=== PATIENT | female | born 1955 | race Caucasian/White ===

== ENCOUNTER 2016-12-21 20:38 | Inpatient (IN) | payer OTHER ==
[~2016-12-21] VITALS: Ht 165.1 cm; Wt 35.1 kg
--- NOTE | ~2016-12-21 | PROC NOTE ---
[place], [place] PROCEDURE NOTE NAME: FRANCO PETTIT UNIT #: [id number] ROOM: 420 DOCTOR: HARSHA HAINES MD,DAREK BIRTHDATE: [birth year] DOS: 12/25/2016 PREOPERATIVE DIAGNOSES: Persistent chest pain, cough and wheezing with abnormal CT scan of the chest. POSTOPERATIVE DIAGNOSES: Tracheobronchitis, patient was noted with, rule out pneumonia. There were no endobronchial obstructive lesions. PROCEDURE DESCRIPTION: Informed consent obtained for the patient. She was brought to the OR and placed in supine position. Conscious sedation administered by the Anesthesia Department. After achieving appropriate sedation, airway introduced into the mouth. Bronchoscope advanced into the airway into laryngeal area. Epiglottis and vocal cords were seen. Bronchoscope advanced to the vocal cord and tracheal lumen. The tracheal lumen was identified. All the secretions suctioned out for this patient with help of normal saline wash tracheal lumen. Pati for this patient was noted. It was sharp. Right upper, right middle, right lower lobe bronchi were noted with copious amount of mucopurulent material removed from the end with help of normal saline wash. No endobronchial obstructive lesions noted. left upper lobectomy the patient. The bronchus washing for the patient was collected from the left lower lobe as well, which was also noted moderate in amount. All secretions suctioned out with the help of normal saline wash, sent for culture. Procedure was tolerated by the patient without any complications. Postoperative findings will be discussed with the patient once the patient recovered the effects of acute sedation. DAREK MCLEOD MD CM:PROCNOTE:PROCEDURE NOTE [id number] DAREK HAINES MD
--- NOTE | ~2016-12-21 | PR ---
[place], [place] PROGRESS NOTE NAME: FRANCO PETTIT UNIT #: [id number] ROOM: 420 DOCTOR: HARSHA HAINES MD,DAREK BIRTHDATE: [birth year] DOS: 12/25/2016 PULMONARY PROGRESS NOTE SUBJECTIVE: She has been noted the same as yesterday with symptoms of nonproductive cough, wheezing and chest tightness. Shortness of breath occurs only with exertion, not present at rest at this time. Denies symptoms of chest pain. The cough remains nonproductive. OBJECTIVE: VITAL SIGNS: Normal temperature, respiratory rate 18, heart rate 97, blood pressure 122/68. Pulse oxygen saturation recorded on 2 liters nasal cannula was 99% saturation. HEENT: Examination shows no acute change. NECK: Supple. CARDIOVASCULAR: S1, S2 audible. LUNGS: Noted without any crackles. Diffuse expiratory wheezing remains the same. ABDOMEN: Soft, nontender. IMPRESSION: The patient with ongoing severe acute exacerbation of chronic obstructive pulmonary disease, acute tracheobronchitis, persistent symptoms of coughing, wheezing, no further changes noted in the last 3 days with current maximal medical therapy. PLAN OF TREATMENT: The patient was suggestive of fiberoptic bronchoscopy that will help to improve the secretion clearance from the endobronchial tree. Mucus plugs will be removed. In the meantime, continue other previous treatment therapy, plan of management. Usual care. The patient was agreeable for bronchoscopy done in the morning, n.p.o. past midnight status has been ordered. DAREK MCLEOD MD CM:PNTRANS [id number] DAREK HAINES MD 12/25/16 1207 interface
--- NOTE | ~2016-12-21 | CON ---
[place], [place] REPORT OF CONSULTATION NAME: FRANCO PETTIT UNIT #: [id number] ROOM: 407 DOCTOR: DAREK DUARTE MD BIRTHDATE: [birth year] DOS: 12/22/2016 PULMONARY CONSULTATION EVALUATION AND MANAGEMENT CONSULTATION REQUESTED BY: Hospitalist services. REASON FOR CONSULTATION: For the assessment of the acute exacerbation of chronic obstructive pulmonary disease. HISTORY OF PRESENT ILLNESS: A 61-year-old female presented to the Emergency Room and hospitalized on 12/21/2016. She has been noted with increased shortness of breath, which has been present for the last 10 days. She has been admitted in [facility] and discharged over a week ago. The patient stated that since she has been discharged, she was still feeling sick and not doing very well. Shortness of breath has been noted progressive worsening. It was also associated with significant severe increased wheezing as well as coughing with some sputum expectoration. The patient denies any symptoms of chest pain. Denies symptoms of rather hemoptysis. She has been treated with current steroids, bronchodilators medical management and described only minimal improvement in the symptom. REVIEW OF SYSTEMS: CONSTITUTIONAL: She has been noted significant fatigue and tiredness and symptoms of fever or chills. EYES: Denies any burning, redness, or tenderness. EARS, NOSE, THROAT: Denies sore throat, hoarseness, otalgia, postnasal drainage. CARDIOVASCULAR: Denies anginal pain, edema or pain of the lower extremities. GASTROINTESTINAL: Denies dysphagia, nausea, vomiting, diarrhea, abdominal pain, hematemesis, melena, hematochezia. MUSCULOSKELETAL: Denies acute joint pain, redness, or tenderness. The patient has been noted pain was described in the left side of the chest for this patient without radiation on scale of 1-10, 7 or 8. SKIN: Denies any lesions or rashes. CENTRAL NERVOUS SYSTEM: Denies dizziness, headache, diplopia or syncopal episodes. Remaining systems were reviewed with the patient, they were noted all negative. PAST MEDICAL HISTORY: 1. The patient was noted with hospitalization and discharged to [facility] on 12/14/2016. 2. History of severe centrilobular emphysema. 3. History of MRSA pneumonia in the past. 4. History of nonsmall cell lung cancer, left upper lobectomy of the patient. 5. Nicotine dependence. 6. Chronic protein-calorie malnutrition. 7. Chronic nicotine dependence. PAST SURGICAL HISTORY: 1. Left upper lobectomy in 2010, nonsmall cell lung cancer. [place], [place] REPORT OF CONSULTATION NAME: FRANCO PETTIT UNIT #: [id number] ROOM: 407 DOCTOR: HARSHA HAINES MD,DAREK BIRTHDATE: [birth year] 2. Past therapeutic bronchoscopies. 3. Biopsy of the left breast, which were described to be benign. SOCIAL HISTORY: The patient is and lives at home. She has been noted smoking since teenager, 3 packs of cigarettes per day. She stated that she has been currently smoking only few cigarettes a day. Denies history of alcohol use or illicit drug use. She worked for a couple of years in the [employer]. FAMILY HISTORY: The patient's father at 74 years of unknown medical illnesses. Mother at age of 1515 years old with acute myocardial infarction complications. DRUG ALLERGIES: Noted as allergy to the MERCURY and IODINE. MEDICATIONS: Current administered medications noted use of the nicotine replacement patches, IV Solu-Medrol, Lovenox for DVT prophylaxis, Dulera, DuoNeb q.6 hours, Levaquin, temazepam, and other p.r.n. medications as well given. PHYSICAL EXAMINATION: GENERAL: A 61-year-old white female who has been noted without any acute distress at this time. Height of 5 feet 5 inches, weight of 77 pounds, BMI 12.8. VITAL SIGNS: Normal temperature, respiratory rate 16-20, heart rate of 88-95. The blood pressure 122/60-110/58. Pulse oxygen saturation of the patient on 2 L nasal cannula was recorded as 99% saturation. HEENT: Examination shows head was atraumatic. Eyes nonicterus. NECK: Supple. CARDIOVASCULAR: S1, S2 audible. LUNGS: Noted. Severe decreased breath sounds were noted in the lungs bilaterally. The abdomen was noted. ABDOMEN: Soft, flat, nontender. EXTREMITIES: The patient was noted without any edema, clubbing or cyanosis. MUSCULOSKELETAL: For the patient was noted without any acute deformities, chronic loss of muscle mass of the patient, which has been known for several years. SKIN: Showed no lesions or rashes. CENTRAL NERVOUS SYSTEM: Cranial nerves 2 through 12 intact. No focal deficit. LABORATORY DATA: CBC on 12/21/2016 on admission, WBC count 13.3. Remaining CBC was normal. PT/PTT was noted as normal. CMP of the patient of 12/21/2016, BUN 25, creatinine 0.53, sodium 147, CO2 of 34. Chest x-ray of the patient that was done 1 view on 12/21/2016 noted severe COPD changes, hyperinflation, emphysema without any acute visible infiltration of nodules. Arterial blood gas pH 7.40, pCO2 of 55, pO2 of 73 for this patient was noted on 12/21/2016. The VQ scan of the patient was also completed on 12/21/2016. The patient was described low probability for pulmonary embolism. Lactic acid noted as highest of 5.2. This morning, lactic acid was noted as 2.6. CMP this morning repeated again shows normal BUN and creatinine. The CBC of the patient this morning shows WBC count 11.6, hemoglobin 36.2, platelet count was normal. [place], [place] REPORT OF CONSULTATION NAME: FRANCO PETTIT UNIT #: [id number] ROOM: 407 DOCTOR: HARSHA HAINES MD,[facility] BIRTHDATE: [birth year] IMPRESSION: 1. The patient who has been currently admitted to the hospital noted with acute exacerbation of chronic obstructive pulmonary disease for this patient with acute bacterial bronchitis. 2. Elevation of lactic acid related to either excessive work of breathing for this patient with lactic acidosis and/or sepsis would be considered. 3. The patient with history of nicotine abuse. 4. Past history of lung cancer as well. 5. History of noncompliance. 6. History of general anxiety disorder and others as known previously. PLAN OF TREATMENT: Order the sputum for Gram stain and culture. Addition of the Mucinex to the treatment. Change the Solu-Medrol rather DuoNeb for the patient every 4 hours rather than every 6 hours. Monitor respiratory symptoms closely in case of any further worsening of the respiratory status. The patient recommended repeat arterial blood gases at that time. Titrate oxygen to maintain a saturation of 92% greater. Usual care. Further treatment changes will be done based on the progression of the illness. Order the prealbumin level as well to determine her nutrition status. Nutrition supplements will be ordered for this patient as well. Chronic hypercarbia for this patient's metabolic alkalosis will be monitored at this time. At this time, the patient would not require use of the BiPAP; however, the BiPAP use could be considered in case of any worsening of the respiratory status. Usual care, other supportive plan of therapy and management. DAREK MCLEOD MD CM:CONSTR:REPORT OF CONSULTATION 1305 12/23/16 0107 interface
--- NOTE | ~2016-12-21 | PN ---
[place], [place] PROGRESS NOTE NAME: FRANCO PETTIT UNIT #: [id number] ROOM: 420 DOCTOR: DAREK DUARTE MD BIRTHDATE: [birth year] DATE: 12/24/16 PULMONARY FOLLOWUP NOTE SUBJECTIVE: She has been noted at this time with symptoms of coughing, wheezing and shortness breath, which has been gradually resolved, but not completely improved. Denies symptoms of chest pain described. Denies symptoms of abdominal pain. She was continuing Solu-Medrol and bronchodilators as well as oxygen supplementation. OBJECTIVE: VITAL SIGNS: Normal temperature, respiratory rate 20, heart rate 98, blood pressure 122/80. Pulse oxygen saturation of the patient recorded as 99% saturation on 2 L nasal cannula. HEENT: Examination shows head was atraumatic. Eyes nonicterus. NECK: Supple. CARDIOVASCULAR: S1, S2 audible. LUNGS: The patient was noted without any crackles. Diffuse expiratory wheezing noted partial decrease from previous examination. The resolution noted incomplete. ABDOMEN: Soft, nontender. LABORATORY DATA: No labs were done today. IMPRESSION: 1. The patient with acute exacerbation of chronic obstructive pulmonary disease with acute severe bronchitis. This patient slow improvement with current symptom. There was no evidence of pneumonia as well. 2. Chronic nicotine dependence. PLAN OF TREATMENT: Continue corticosteroids, bronchodilators, and oxygen supplementation, current dose without any changes need to be done. Sputum for Gram stain, culture for patient has been ordered, which was pending for this patient to be done. Other supportive therapy, plan of management at this time. Usual care. Further treatment changes will be done based on the progression of illness. No major changes in treatment needs to be done today. [place], [place] PROGRESS NOTE NAME: FRANCO PETTIT UNIT #: [id number] ROOM: 420 DOCTOR: DAREK DUARTE MD BIRTHDATE: [birth year] DAREK DUARTE MD CM:PNTRANS [id number] DAREK HAINES MD 12/26/161758 REINA VEGA MIS.R
--- NOTE | ~2016-12-21 | PR ---
[place], [place] PROGRESS NOTE NAME: FRANCO PETTIT UNIT #: [id number] ROOM: 420 DOCTOR: HARSHA HAINES MD,DAREK BIRTHDATE: [birth year] DOS: 12/26/2016 PULMONARY FOLLOWUP SUBJECTIVE: She has been currently noted n.p.o. past midnight bronchoscopy. The patient continues to have symptoms of coughing, which remained nonproductive with excessive wheezing, shortness of breath, unchanged from yesterday's examination. There were no symptoms of chest pain or any abdominal pain. OBJECTIVE: VITAL SIGNS: Normal temperature, respiratory rate 18-19, heart rate 104-94, blood pressure 140/84-126/83. The pulse oxygen saturation of the patient recorded as 2 liters nasal cannula 90% saturation. HEENT: Showed no acute change. NECK: Supple. CARDIOVASCULAR: S1, S2 audible. LUNGS: Diffuse reduction in breath sounds bilaterally with expiratory wheezing. There were no crackles. ABDOMEN: Soft, nontender. LABORATORY DATA: The culture of the spontaneous sputum for this patient was noted as normal alyx. Preliminary findings culture results were pending. The Gram stain noted many white blood cells, moderate epithelial cells, many gram-positive cocci in pairs, chains and clusters. The patient had a CT scan of the chest that was ordered by the primary care attending of this patient as well that was personally reviewed. CT scan of the chest for the patient that was done without contrast was reviewed shows a small loculated large pleural fluid causing indentation of the right lobe of the liver as well. Some areas of scarring was present in the right upper and the right mid lung as well as left upper lung. This scar appeared to be more prominent for this patient in the right upper lobe. Because of lack of IV contrast, any lymphadenopathy especially in the hilar area cannot be completely excluded. Right lower lobe infiltration was also noted. IMPRESSION: 1. The patient with acute pneumonia, which was visible only with the CT scan of the chest would be noted with very small loculated pleural fluid, not amenable any intervention at this time. 2. Ongoing acute exacerbation of chronic obstructive pulmonary disease as well. 3. The patient with the severe protein-calorie malnutrition status as well. PLAN OF TREATMENT: Proceed with the bronchoscopy for more accurate culture assessment or any endobronchial obstruction. Continuation of bronchodilators, other treatment plan and management as in progress. Usual care, other supportive therapy care and management as well. Supportive care. No other treatment change at this time will be needed. Further change in treatment will be done based on the progression of the illness. [place], [place] PROGRESS NOTE NAME: FRANCO PETTIT UNIT #: [id number] ROOM: [facility] DOCTOR: DAREK DUARTE MD BIRTHDATE: [birth year] DAREK MCLEOD MD CM:PNTRANS [id number] DAREK HAINES MD 12/26/16 1356 interface
--- NOTE | ~2016-12-21 | PR ---
[place], [place] PROGRESS NOTE NAME: FRANCO PETTIT UNIT #: [id number] ROOM: 407 DOCTOR: DAREK DUARTE MD BIRTHDATE: [birth year] DOS: 12/23/2016 PULMONARY FOLLOWUP SUBJECTIVE: She has been noted with partial reduction in symptoms of coughing and shortness of breath. Denies any chest pain at the present time. Shortness breath was still noted with tightness in the chest intermittently. OBJECTIVE: VITAL SIGNS: For the patient which has been recorded shows temperature normal, respiratory rate 18, heart rate 117 with mild sinus tachycardia, blood pressure 168/86 to 152/78. Pulse oxygen saturation 2-1/2 liters nasal cannula was noted as 98% saturation. HEENT: Showed no new change. NECK: Supple. CARDIOVASCULAR: S1, S2 audible. LUNGS: The patient was noted with diffuse expiratory wheezing without any crackles with partial reduction noted as compared with the previous chest x-ray. LABORATORY DATA: The chest x-ray of the patient that was done this morning, the patient review shows severe advanced centrilobular emphysema with bullous component would be suggestive for this patient as well. The BMP of patient that was done this morning shows normal BUN and creatinine. CBC this morning, hemoglobin 11.5, hematocrit 34.8, platelet count was normal. Blood culture shows no bacterial growth. IMPRESSION: 1. The patient who has been currently noted with severe acute exacerbation of chronic obstructive pulmonary disease with acute tracheobronchitis. 2. Severe bullous emphysema was also noted for this patient with underlying centrilobular emphysema as well. 3. Severe protein calorie malnutrition status. PLAN OF TREATMENT: Continue the patient on current plan of management at this time with all other usual treatment. Supportive therapy as a plan of care and management, plan of care. [place], [place] PROGRESS NOTE NAME: FRANCO PETTIT UNIT #: [id number] ROOM: 407 DOCTOR: DAREK DUARTE MD BIRTHDATE: [birth year] DAREK MCLEOD MD CM:PNTRANS [id number] DAREK HAINES MD 12/24/16 0050 interface
--- NOTE | ~2016-12-21 | PN ---
[place], [place] PROGRESS NOTE NAME: FRANCO PETTIT UNIT #: [id number] ROOM: 420 DOCTOR: DAERK DUARTE MD BIRTHDATE: [birth year] DATE: 12/27/16 PULMONARY PROGRESS NOTE SUBJECTIVE: She has been comfortably resting on the bed. The bronchoscopy done for the patient with reduction in symptoms of wheezing and cough. The patient denies symptoms of chest pain. OBJECTIVE: VITAL SIGNS: Shows normal temperature, respiratory rate 18, heart rate 89, blood pressure 116/58-151/63. Intake for the patient is 1600 mL. Pulse oxygen saturation on 2 liters nasal cannula 97% saturation. HEENT: Examination shows no acute change. NECK: Supple. CARDIOVASCULAR: S1, S2 is audible without any added sounds. LUNGS: For the patient shows moderate reduced breath sounds bilaterally, reduction in the wheezing, mild to moderate expiratory wheezing still noted, which has significantly decreased after the bronchoscopy yesterday. ABDOMEN: Flat, soft, nontender. LABORATORY DATA: BMP of the patient this morning, BUN 25, creatinine was normal. CO2 of 36. CBC of the patient this morning, hemoglobin 11.7, hematocrit 35.8 with a platelet count 199,000, 95% segmented neutrophils. Culture of the spontaneous sputum of the patient of 12/25/2016 was noted as normal alyx. IMPRESSION: Gram stain of the bronchial washings shows many white blood cells, moderate epithelial cells, moderate gram-positive cocci in pairs, chains and clusters and few gram-positive bacilli. Sputum culture noted normal alyx. IMPRESSION: 1. The patient with acute severe tracheobronchitis with acute exacerbation of chronic obstructive pulmonary disease with reduction in symptoms post-bronchoscopy with removal of the mucous impaction of major airways. 2. Suspected nodules for the patient in the right lung, worsening scarring as well with past history of lung cancer and the right upper lobectomy. PLAN OF TREATMENT: At this time, no changes in the treatment will be necessary. Continue corticosteroids and bronchodilators. Monitoring of the labs for the patient closely including the corticosteroids dose to be continued. Supportive plan of management and care. [place], [place] PROGRESS NOTE NAME: FRANCO PETTIT UNIT #: [id number] ROOM: 420 DOCTOR: DAREK DUARTE MD BIRTHDATE: [birth year] DAREK DUARTE MD CM:PNTRANS [phone] DAREK HAINES MD 12/30/16 1151 REINA VEGA.R
[~2016-12-21 20:38] MED LIST: ACTONEL150 MG PO; ADVAIR 250/501 EA INH; ALBUTEROL2.5 MG/0.5 INH; AMBIEN10 M1 PO; AMBIEN10 MG PO; Atrovent I0.5 MG/2.5 INH; CEFTRIAXON1 GM/50 ML IV; DELTASONE10 MG PO; DELTASONE5 MG PO; LEVAQUIN LEVA-750 MG PO; LEVAQUIN500 M2 PO; LEVAQUIN750 MG PO; LEVOFLOXACIN500 MG PO; MUCINEX DM 30/61 TAB PO; NILSTAT,MY500000 UN/ PO; OXYGEN NAS; PERCOCET 325 MG1 TA2 PO; PREDNICOT20 MG PO; PREDNISONE10 MG PO; PROAIR HFA0.09 MG/AC IH; PROTONIX40 MG PO; RA P-COL RITE1 EACH PO; ROBITUSSIN AC 110 ML PO; ROBITUSSIN DM 110 ML PO; SLOW MAG 110 MG64 MG PO; SOLU-MEDROL125 MG IJ; SPIRIVA RESPIMAT4 G1 IH; SYMBICORT 10.10.2 M1 IH; SYMBICORT1 AE1 IH; TUSSI-ORGANIDI120 ML PO; VENTOLIN 02.5 MG/3 M INH; VIBRAMYCIN100 MG PO; XANAX0.25 MG PO; ZANTAC 150150 MG PO; ZITHROMAX500 MG PO; ZOLOFT100 MG PO; ZOLPIDEM TART5 MG PO; [UNRECOGNIZED DRUG - OTHER] IV
[2016-12-21 20:41] VITALS: BP 120/85
[2016-12-21] MEDS ORDERED: ACID CONTROLLER20 M1 PO (21:00)
[2016-12-21] MEDS ORDERED: LOVENOX30 MG/0.3 SC (21:01)
[2016-12-21] MEDS ORDERED: NOVOLOG FLEX100 U/ML SC (21:01)
[2016-12-21] MEDS ORDERED: PULMICORT RESP0.5 MG INH (21:02)
[2016-12-21] MEDS ORDERED: BROVANA15 MCG/2 M INH (21:02)
[2016-12-21] MEDS ORDERED: PERCOCET 325 MG1 TA6 PO (21:03)
[2016-12-21] MEDS ORDERED: GUAIFENESIN600 MG PO (21:03)
[2016-12-21] MEDS ORDERED: SENOKOT S 50 MG1 TAB PO (21:03)
[2016-12-21] MEDS ORDERED: DUONEB 3 MG/3 ML3 M1 INH (21:04)
[2016-12-21 21:13] LABS: BASO % 0.2 % (0.0-1.0); EOS % 0.2 % (1.0-4.0); HEMATOCRIT 40.9 % (37.0-47.0); HEMOGLOBIN 13.5 g/dl (12.0-16.0); IG # 0.1 10*3/uL (0.0-0.1); LYMPH # 2.1 10*3/uL (1.3-4.4); LYMPH % 15.5 % (27.0-41.0); MEAN CELL VOLUME 91.1 fl (81.0-99.0); MEAN CORPUSCULAR HGB 30.1 pg (27.0-31.0); MEAN PLATELET VOLUME 8.8 fl (9.6-12.3); MONO # 0.7 10*3/uL (0.1-1.0); MONO % 5.3 % (3.0-9.0); NEUT # 10.4 10*3/uL (2.3-7.9); PLATELET COUNT AUTOMATED 218 10*3/uL (130-400); RED BLOOD COUNT 4.49 10*6/uL (4.10-5.10); RED CELL DISTRI WIDTH 12.6 % (0-14.5); WHITE BLOOD COUNT 13.3 10*3/uL (4.8-10.8)
[2016-12-21 21:16] VITALS: BP 128/80
[2016-12-21 21:25] LABS: PROTHROMBIN TIME 10.5 SECONDS (9.0-12.4)
[2016-12-21 21:30] VITALS: BP 128/80
[2016-12-21 21:30] LABS: ALBUMIN 3.2 gm/dl (3.1-4.5); ALKALINE PHOSPHATASE 71 U/L (45-117); BILIRUBIN, TOTAL 0.2 mg/dl (0.2-1.0); BUN 25 mg/dl (7-24); CARBON DIOXIDE 34 mmol/L (21-32); CHLORIDE 104 mmol/L (98-107); EST GLOM FILT AFRICAN AMERICAN > 60 ml/min; GLUCOSE 92 mg/dL (65-99); MAGNESIUM 2.2 mg/dL (1.5-2.1); POTASSIUM 3.9 mmol/L (3.5-5.1); SGOT/AST 15 IU/L (3-35); SGPT/ALT 18 U/L (12-78); SODIUM 147 mmol/L (136-145)
[2016-12-21 21:31] LABS: TROPONIN I < 0.015 ng/ml (<0.045)
[2016-12-21 21:40] LABS: ABG BASE EXCESS 7.8 mmol/L (-2.0-2.0); ABG CO2 CONTENT 35.6 mmol/L (23-27); ABG HCO3 33.9 mmol/l (22-26); ABG TEMPERATURE 98.8 F (98.0-99.0); ARTERIAL BLOOD GAS PH 7.405 (7.35-7.45); ARTERIAL BLOOD GAS PO2 73.5 mmHg (80-90)
[2016-12-21 22:08] VITALS: BP 130/84
[2016-12-21 22:50] VITALS: BP 135/81
[2016-12-21 23:42] VITALS: BP 128/72
[2016-12-22] VITALS: BP 149/84
[2016-12-22 03:14] LABS: LA>2 REFLEX 2 HR DRAW NOW
[2016-12-22 03:34] LABS: LA>2 RFLX FOLLOW UP AT 2 HRS 4.7 mmol/L (0.4-2.0)
[2016-12-22 04:06] VITALS: BP 122/60
[2016-12-22 05:28] LABS: LA>2 REFLEX 4 HR DRAW NOW
[2016-12-22 05:59] LABS: HEMATOCRIT 36.2 % (37.0-47.0); HEMOGLOBIN 11.6 g/dl (12.0-16.0); IG # 0.1 10*3/uL (0.0-0.1); LYMPH # 0.7 10*3/uL (1.3-4.4); LYMPH % 8.5 % (27.0-41.0); MEAN CELL VOLUME 91.4 fl (81.0-99.0); MEAN CORPUSCULAR HGB 29.3 pg (27.0-31.0); MONO # 0.1 10*3/uL (0.1-1.0); MONO % 1.5 % (3.0-9.0); NEUT # 7.7 10*3/uL (2.3-7.9); NEUT % 88.8 % (47.0-73.0); PLATELET COUNT AUTOMATED 184 10*3/uL (130-400); RED BLOOD COUNT 3.96 10*6/uL (4.10-5.10); RED CELL DISTRI WIDTH 12.6 % (0-14.5); WHITE BLOOD COUNT 8.7 10*3/uL (4.8-10.8)
[2016-12-22 06:25] LABS: ALBUMIN 2.8 gm/dl (3.1-4.5); ALKALINE PHOSPHATASE 60 U/L (45-117); BILIRUBIN, TOTAL 0.3 mg/dl (0.2-1.0); BUN 16 mg/dl (7-24); CARBON DIOXIDE 32 mmol/L (21-32); CHLORIDE 104 mmol/L (98-107); EST GLOM FILT AFRICAN AMERICAN > 60 ml/min; FREE T4 1.01 ng/dl (0.76-1.46); GLUCOSE 141 mg/dL (65-99); MAGNESIUM 1.8 mg/dL (1.5-2.1); POTASSIUM 3.9 mmol/L (3.5-5.1); SGOT/AST 11 IU/L (3-35); SGPT/ALT 17 U/L (12-78); SODIUM 142 mmol/L (136-145); TOTAL PROTEIN 5.4 gm/dL (6.4-8.2)
[2016-12-22 06:32] LABS: THYROID STIM HORMONE (HS) 0.516 uIU/ml (0.358-4.75)
[2016-12-22 08:00] VITALS: BP 110/58
[2016-12-22 08:30] LABS: FOLIC ACID 12.45 ng/mL (>5.38); VITAMIN D, 25-HYDROXY 17.8 ng/mL (30-100)
[2016-12-22 09:37] LABS: LA>2 REFLEX 2 HR DRAW NOW
[2016-12-22 09:58] LABS: LA>2 RFLX FOLLOW UP AT 2 HRS 5.2 mmol/L (0.4-2.0)
[2016-12-22 11:46] LABS: LA>2 REFLEX 4 HR DRAW NOW
[2016-12-22 12:00] VITALS: BP 118/56; BP 128/64
[2016-12-22 16:00] VITALS: BP 130/67
[2016-12-22 16:47] LABS: LA>2 REFLEX 2 HR DRAW NOW
[2016-12-22 17:10] LABS: LA>2 RFLX FOLLOW UP AT 2 HRS 3.6 mmol/L (0.4-2.0)
[2016-12-22 19:05] LABS: LA>2 REFLEX 4 HR DRAW NOW
[2016-12-22 20:00] VITALS: BP 149/71
[2016-12-23] VITALS: BP 152/78
[2016-12-23 04:00] VITALS: BP 152/78
[2016-12-23 06:13] LABS: HEMATOCRIT 34.8 % (37.0-47.0); HEMOGLOBIN 11.5 g/dl (12.0-16.0); MEAN CELL VOLUME 89.9 fl (81.0-99.0); MEAN CORPUSCULAR HGB 29.7 pg (27.0-31.0); MEAN PLATELET VOLUME 9.1 fl (9.6-12.3); PLATELET COUNT AUTOMATED 195 10*3/uL (130-400); RED BLOOD COUNT 3.87 10*6/uL (4.10-5.10); RED CELL DISTRI WIDTH 12.5 % (0-14.5); WHITE BLOOD COUNT 10.3 10*3/uL (4.8-10.8)
[2016-12-23 06:18] LABS: BUN 19 mg/dl (7-24); CARBON DIOXIDE 30 mmol/L (21-32); CHLORIDE 102 mmol/L (98-107); EST GLOM FILT AFRICAN AMERICAN > 60 ml/min; GLUCOSE 147 mg/dL (65-99); POTASSIUM 3.7 mmol/L (3.5-5.1); SODIUM 140 mmol/L (136-145)
[2016-12-23 06:25] LABS: PREALBUMIN 32 mg/dl (20-40)
[2016-12-23 06:45] LABS: LYMPHOCYTE # 0.8 10*3/uL (1.3-4.4); MONOCYTE # 0.2 10*3/uL (0.1-1.0); MYELOCYTES 1 % (0-0); NEUTROPHIL # 9.2 10*3/uL (2.3-7.9); NEUTROPHILS 89 % (47-73); TOTAL CELLS COUNTED 100 #CELLS
[2016-12-23 06:46] LABS: PLATELET SUFFICIENCY NORMAL (NORMAL); TOXIC GRANULATION SLIGHT
[2016-12-23 08:00] VITALS: BP 168/86
[2016-12-23 12:00] VITALS: BP 136/90
[2016-12-23 16:00] VITALS: BP 165/86
[2016-12-23 20:00] VITALS: BP 153/82
[2016-12-24] VITALS: BP 154/88
[2016-12-24 08:00] VITALS: BP 122/80
[2016-12-24 12:00] VITALS: BP 126/78
[2016-12-24 16:00] VITALS: BP 106/66
[2016-12-24 20:00] VITALS: BP 154/79
[2016-12-25] VITALS: BP 108/65
[2016-12-25 08:00] VITALS: BP 122/68
[2016-12-25 12:00] VITALS: BP 119/68
[2016-12-25 16:00] VITALS: BP 126/73
[2016-12-25 20:00] VITALS: BP 136/75
[2016-12-26] VITALS (9 sets, daily range): BP systolic 117–164; BP diastolic 66–89
[2016-12-26 11:37] LABS: BASO % 0.1 % (0.0-1.0); HEMOGLOBIN 12.1 g/dl (12.0-16.0); IG # 0.1 10*3/uL (0.0-0.1); LYMPH # 1.4 10*3/uL (1.3-4.4); LYMPH % 12.9 % (27.0-41.0); MEAN CELL VOLUME 88.9 fl (81.0-99.0); MEAN CORPUSCULAR HGB 29.1 pg (27.0-31.0); MEAN CORPUSCULAR HGB CONC 32.7 g/dl (33.0-37.0); MONO # 0.5 10*3/uL (0.1-1.0); MONO % 4.6 % (3.0-9.0); NEUT # 8.7 10*3/uL (2.3-7.9); NEUT % 81.3 % (47.0-73.0); PLATELET COUNT AUTOMATED 181 10*3/uL (130-400); RED BLOOD COUNT 4.16 10*6/uL (4.10-5.10); WHITE BLOOD COUNT 10.7 10*3/uL (4.8-10.8)
[2016-12-26 11:51] LABS: ALBUMIN 3.1 gm/dl (3.1-4.5); ALKALINE PHOSPHATASE 56 U/L (45-117); BILIRUBIN, TOTAL 0.2 mg/dl (0.2-1.0); BUN 15 mg/dl (7-24); CARBON DIOXIDE 32 mmol/L (21-32); CHLORIDE 98 mmol/L (98-107); EST GLOM FILT AFRICAN AMERICAN > 60 ml/min; GLUCOSE 102 mg/dL (65-99); POTASSIUM 3.9 mmol/L (3.5-5.1); SGOT/AST 14 IU/L (3-35); SGPT/ALT 24 U/L (12-78); SODIUM 140 mmol/L (136-145); TOTAL PROTEIN 5.9 gm/dL (6.4-8.2)
[2016-12-27] VITALS: BP 151/63
[2016-12-27 05:53] LABS: BUN 22 mg/dl (7-24); CARBON DIOXIDE 36 mmol/L (21-32); CHLORIDE 101 mmol/L (98-107); EST GLOM FILT AFRICAN AMERICAN > 60 ml/min; GLUCOSE 145 mg/dL (65-99); POTASSIUM 4.4 mmol/L (3.5-5.1); SODIUM 142 mmol/L (136-145)
[2016-12-27 06:11] LABS: HEMATOCRIT 35.8 % (37.0-47.0); HEMOGLOBIN 11.7 g/dl (12.0-16.0); MEAN CELL VOLUME 89.7 fl (81.0-99.0); MEAN CORPUSCULAR HGB 29.3 pg (27.0-31.0); MEAN CORPUSCULAR HGB CONC 32.7 g/dl (33.0-37.0); MEAN PLATELET VOLUME 9.6 fl (9.6-12.3); PLATELET COUNT AUTOMATED 199 10*3/uL (130-400); RED BLOOD COUNT 3.99 10*6/uL (4.10-5.10); RED CELL DISTRI WIDTH 13.2 % (0-14.5); WHITE BLOOD COUNT 9.8 10*3/uL (4.8-10.8)
[2016-12-27 06:52] LABS: LYMPHOCYTE # 0.3 10*3/uL (1.3-4.4); MONOCYTE # 0.2 10*3/uL (0.1-1.0); NEUTROPHIL # 9.3 10*3/uL (2.3-7.9); NEUTROPHILS 95 % (47-73); PLATELET SUFFICIENCY NORMAL (NORMAL); TOTAL CELLS COUNTED 100 #CELLS
[2016-12-27 08:00] VITALS: BP 116/58
[2016-12-27 12:00] VITALS: BP 124/75
[2016-12-27 16:00] VITALS: BP 136/79
[2016-12-27 16:12] LABS: ACID FAST SPEC PROCESSING Concentration (.)
[2016-12-27 20:00] VITALS: BP 148/79
[2016-12-28] VITALS: BP 136/87
[2016-12-28 06:40] LABS: BASO % 0.1 % (0.0-1.0); HEMATOCRIT 35.5 % (37.0-47.0); HEMOGLOBIN 11.7 g/dl (12.0-16.0); IG # 0.1 10*3/uL (0.0-0.1); LYMPH # 0.7 10*3/uL (1.3-4.4); LYMPH % 8.4 % (27.0-41.0); MEAN CELL VOLUME 89.2 fl (81.0-99.0); MEAN CORPUSCULAR HGB 29.4 pg (27.0-31.0); MEAN PLATELET VOLUME 8.9 fl (9.6-12.3); MONO # 0.4 10*3/uL (0.1-1.0); MONO % 4.5 % (3.0-9.0); NEUT % 85.3 % (47.0-73.0); PLATELET COUNT AUTOMATED 184 10*3/uL (130-400); RED BLOOD COUNT 3.98 10*6/uL (4.10-5.10); RED CELL DISTRI WIDTH 12.9 % (0-14.5); WHITE BLOOD COUNT 8.3 10*3/uL (4.8-10.8)
[2016-12-28 06:59] LABS: BUN 19 mg/dl (7-24); CARBON DIOXIDE 33 mmol/L (21-32); CHLORIDE 99 mmol/L (98-107); EST GLOM FILT AFRICAN AMERICAN > 60 ml/min; GLUCOSE 127 mg/dL (65-99); POTASSIUM 4.2 mmol/L (3.5-5.1); SODIUM 140 mmol/L (136-145)
[2016-12-28 08:00] VITALS: BP 139/79
[2016-12-28] MEDS ORDERED: D-1000 185 MG-11 TAB PO (10:00)
[2016-12-28] MEDS ORDERED: LEVOFLOXACIN500 MG PO (10:00)
[2016-12-28] MEDS ORDERED: PREDNISONE10 MG PO (10:01)
== END 2016-12-28 11:20 | disposition home or self-care (01) | DRG 871 ==
LOC: ED 20:38 → 4E 23:04 → EDHOLD 23:04 → 4E 23:34
PROVIDERS: Emergency Medicine Emergency Medical Services; Internal Medicine; Internal Medicine Critical Care Medicine; Internal Medicine Hospice and Palliative Medicine
PROC: 0BC58ZZ Extirpation of Matter from Right Middle Lobe Bronchus, Via Natural or Artificial Opening Endoscopic (ICD-10-PCS; principal; 2016-12-25)
PROC: 0BC48ZZ Extirpation of Matter from Right Upper Lobe Bronchus, Via Natural or Artificial Opening Endoscopic (ICD-10-PCS; principal; 2016-12-25)
PROC: 0BCB8ZZ Extirpation of Matter from Left Lower Lobe Bronchus, Via Natural or Artificial Opening Endoscopic (ICD-10-PCS; principal; 2016-12-25)
PROC: 0BC68ZZ Extirpation of Matter from Right Lower Lobe Bronchus, Via Natural or Artificial Opening Endoscopic (ICD-10-PCS; principal; 2016-12-25)
DX: A41.9 Sepsis, unspecified organism (principal); E43 Unspecified severe protein-calorie malnutrition; J96.21 Acute and chronic respiratory failure with hypoxia; E87.0 Hyperosmolality and hypernatremia; J18.9 Pneumonia, unspecified organism; F33.9 Major depressive disorder, recurrent, unspecified; J44.0 Chronic obstructive pulmonary disease with (acute) lower respiratory infection; J44.1 Chronic obstructive pulmonary disease with (acute) exacerbation; Z68.1 Body mass index [BMI] 19.9 or less, adult; R65.20 Severe sepsis without septic shock; F17.200 Nicotine dependence, unspecified, uncomplicated; E55.9 Vitamin D deficiency, unspecified; F12.90 Cannabis use, unspecified, uncomplicated; F41.9 Anxiety disorder, unspecified; J20.9 Acute bronchitis, unspecified; G47.00 Insomnia, unspecified; K21.9 Gastro-esophageal reflux disease without esophagitis; E86.0 Dehydration; Z82.49 Family history of ischemic heart disease and other diseases of the circulatory system; Z88.8 Allergy status to other drugs, medicaments and biological substances; Z91.041 Radiographic dye allergy status; Z71.6 Tobacco abuse counseling; Z79.4 Long term (current) use of insulin; Z79.1 Long term (current) use of non-steroidal anti-inflammatories (NSAID); Z79.899 Other long term (current) drug therapy; Z91.19 Patient's noncompliance with other medical treatment and regimen

== ENCOUNTER 2017-08-26 20:46 | Inpatient (IN) | payer SELFPAY ==
[~2017-08-26] VITALS: Ht 165.1 cm; Wt 36.8 kg
--- NOTE | ~2017-08-26 | PR ---
[place], [place] PROGRESS NOTE NAME: FRANCO PETTIT UNIT #: [id number] ROOM: 506 DOCTOR: HARSHA HAINES MD,DAREK BIRTHDATE: [birth year] DOS: 08/29/2017 SUBJECTIVE: She has been noted comfortable at this time. Bronchoscopy done yesterday reduction in the respiratory symptom noted with the cough, wheezing and shortness of breath. She still continued on the corticosteroids. OBJECTIVE: VITAL SIGNS: The patient showed normal temperature, respiratory rate 20, heart rate 90, blood pressure 154/76. Pulse ox saturation on 2 liters nasal cannula 97% saturation. HEENT: No acute change. NECK: Supple. CARDIOVASCULAR SYSTEM: S1, S2 audible. LUNGS: Noted without any wheezing or crackles. Breaths are noted mildly decreased bilaterally. ABDOMEN: Soft, nontender. LABORATORY DATA: Culture of the bronchial washing showed normal alyx. Prealbumin 24. IMPRESSION: The patient with acute exacerbation of chronic obstructive pulmonary disease, acute tracheobronchitis, which is improving. History of chronic nicotine dependence. Past history of lung cancer. PLAN OF TREATMENT: From the pulmonary standpoint, the patient could be discharged home for this patient whenever desired on tapering prednisone, oral antibiotics. Abstinence of tobacco use was recommended. DAREK MCLEOD MD CM:PNTRANS [id number] DAREK HAINES MD 09/03/17 0701 interface
--- NOTE | ~2017-08-26 | CON ---
[place], [place] REPORT OF CONSULTATION NAME: FRANCO PETTIT UNIT #: [id number] ROOM: 506 DOCTOR: DAREK DUARTE MD BIRTHDATE: [birth year] DOS: 08/27/2017 Consultation requested by the hospitalist service for the patient's assessment of severe respiratory symptom exacerbation with COPD and possibility of therapeutic bronchoscopy. HISTORY OF PRESENT ILLNESS: A 61-year-old white female patient known to me, seen and examined on 08/27/2017. The patient has been admitted to the hospital from 08/26/2017. The patient reported symptoms of having progressive increase of shortness of breath, which is ongoing about 3 weeks. The symptoms started with a cough that has been noted with some sputum expectoration at time. The cough has been described to be quite severe. She was also reporting symptoms of tightness in the chest with expiratory wheezing. The symptom, the patient has not been resolving with current home medication use including several-time use of nebulized bronchodilators. She has been currently admitted to the hospital, being managed for acute exacerbation of COPD management. The patient was also noted with history of chronic hypoxic respiratory failure, use the oxygen supplementation up to 4 liters at home. REVIEW OF SYSTEMS: CONSTITUTIONAL SYMPTOMS: She does report symptoms of fatigue and tiredness and symptoms of fever or chills. EYES: Denies any burning, redness, or tenderness. EARS, NOSE, THROAT: Denies sore throat, hoarseness, otalgia, postnasal drainage or epistaxis. CARDIOVASCULAR: Denies angina pain, edema or pain in the lower extremities. GASTROINTESTINAL: Dysphagia, nausea, vomiting, diarrhea, abdominal pain, hematemesis, melena, hematochezia, abnormal weight loss. Denies symptoms of dysphagia. GENITOURINARY: No dysuria, suprapubic pain, hematuria. SKIN: Denies lesions or rashes. CENTRAL NERVOUS SYSTEM: No dizziness, headache, diplopia, syncopal episodes or seizures history. Remaining systems were reviewed and they were noted all negative. PAST MEDICAL HISTORY: Significant for: 1. Last hospitalization in 12/2016 for the medical management of acute exacerbation of COPD, did require therapy of bronchoscopy at that time as well. 2. Past history of advanced centrilobular emphysema/COPD. 3. Past history of MRSA pneumonia. 4. History of non-small cell lung cancer. The patient's left upper lobectomy. 5. Nicotine dependence. 6. Chronic protein-calorie malnutrition status. 7. Chronic hypoxic respiratory failure, use of oxygen 4 liters. PAST SURGICAL HISTORY: 1. Left upper lobectomy in 2010 for non-small cell lung cancer. 2. Therapeutic bronchoscopy last one done in December 2016. 3. Biopsy of the left breast of the patient that was noted benign. [place], [place] REPORT OF CONSULTATION NAME: FRANCO PETTIT UNIT #: [id number] ROOM: [facility] DOCTOR: HARSHA HAINES MD,DAREK BIRTHDATE: [birth year] SOCIAL HISTORY: The patient is and lives at home. Smoking was noted as teenager 3 packs of cigarettes per day in the past, but stating currently smoking cigarettes, less than a pack of cigarettes per day. Denies any alcohol use, illicit drug use. 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 FAMILY HISTORY: Mother at the age of 7575 years old with complication of acute myocardial infarction. Father at age of 7474 years old, complication related to unknown medical illnesses. MEDICATIONS: For the patient which were listed at time of admission use of Mucinex, IV Solu-Medrol 60 mg b.i.d., Lovenox DVT prophylaxis, DuoNeb q.4 hours, Levaquin, and other p.r.n. medications. DRUG ALLERGIES HISTORY: Noted as allergy: 1. IODINE. 2. MERCURY. PHYSICAL EXAMINATION: GENERAL: A 61 white female without any distress, currently lying in the bed. Height of 5 feet 5 inches, weight 81 pounds, BMI 13.5. VITAL SIGNS: Normal temperature, respiratory rate 20-18, heart rate of sinus tachycardia 120-103, blood pressure 120/95-135/75. Pulse oxygen saturation on 5 liters nasal cannula 96% saturation. Previous 6 liter was 96% saturation. HEENT: Examination shows head was atraumatic. Eye nonicterus, loss of muscle mastication chronic. NECK: Supple. Eyes nonicterus. CARDIOVASCULAR: S1, S2 is audible. LUNGS: Diffuse reduction in breath sounds bilaterally with expiratory wheezing was noted. There were no crackles. ABDOMEN: Flat, soft, nontender. Bowel sounds present. There was no tenderness. EXTREMITIES: The patient does not show any edema, clubbing, cyanosis. CENTRAL NERVOUS SYSTEM: Cranial nerves 2-12 intact. No focal deficit. MUSCULOSKELETAL: No obvious deformities visible skin without any lesions or rashes. LABORATORY DATA: Lactic acid yesterday on admission were normal. PT/PTT yesterday on admission was normal. CBC yesterday on admission normal. CBC for the patient was noted except minimal elevation is in for 0.8%. 08/26/2017, CMP for the patient normal BUN, creatinine and other LFTs including troponins. CBC this morning remains normal. CMP this morning, glucose 145, potassium 3.3. Total protein of 6.2. The chest x-ray one for the patient noted postoperative changes in the left side, noted with severe COPD changes, hyperinflation. There were no gross pulmonary infiltration. No visible any abnormal pulmonary nodules. IMPRESSION: 1. The patient who has been currently admitted to the hospital noted with progressive increased respiratory symptoms related to the acute exacerbation of [place], [place] REPORT OF CONSULTATION NAME: FRANCO PETTIT UNIT #: [id number] ROOM: [facility] DOCTOR: DAREK DUARTE MD BIRTHDATE: [birth year] chronic obstructive pulmonary disease with acute bronchitis. I suspect mucus impaction. 2. Acute tachycardia secondary to acute exacerbation of chronic obstructive pulmonary disease as well. 3. Chronic nicotine dependence. 4. Acute chronic protein-calorie malnutrition with low BMI as well. 5. Past history of lung cancer. The patient with a lobectomy without any recurrence known. PLAN OF TREATMENT: Continuation of current dose of steroids, bronchodilators, antibiotics and oxygen supplementation. The oxygen supplementation, titrate to maintain saturation 92% or greater. Therapy of bronchoscopy planned to be done in the morning for the patient as well. Other supportive plan of management. Continue addition of changes in the treatment will be made based on progression of illness. Usual care, other supportive plan of management and treatments. Thanks for allowing me to participate in the care of this patient. DAREK MCLEOD MD CM:CONSTR:REPORT OF CONSULTATION 1239 08/27/17 2012 interface
--- NOTE | ~2017-08-26 | PROC NOTE ---
[place], [place] PROCEDURE NOTE NAME: FRANCO PETTIT UNIT #: [id number] ROOM: 506 DOCTOR: HARSHA HAINES MD,DAREK BIRTHDATE: [birth year] DOS: 08/28/2017 PREOPERATIVE DIAGNOSIS: Severe nonproductive cough with wheezing, maximum medical therapy with history of COPD, suspected mucous impaction major airways. POSTOPERATIVE DIAGNOSES: Removal of multiple plugs and mucus endobronchial tree bilaterally. PROCEDURE DESCRIPTION: Informed consent obtained with the patient. The patient brought to the OR and placed in supine position. Conscious sedation administered by the Anesthesia Department. After achieving proper sedation, airway introduced into the mouth. Bronchoscope advanced to the airway into laryngeal area. Epiglottis, vocal cords were seen. Vocal cords moving symmetrically with movements. Bronchoscope advanced to the vocal cords into the tracheal lumen. Tracheal lumen was noted with moderate amount of thick mucus secretion suctioned out. Pati noted sharp. Very thick plugs of mucus were present in endobronchial tree bilaterally, suctioned out with the help of normal saline wash, sent for cultures. Procedure well tolerated by the patient without any difficulty. Postoperative findings will be discussed with the patient once the patient recovered the effects of acute sedation. DAREK MCELOD MD CM:PROCNOTE:PROCEDURE NOTE [id number] DAREK HAINES MD
--- NOTE | ~2017-08-26 | PR ---
[place], [place] PROGRESS NOTE NAME: FRANCO PETTIT UNIT #: [id number] ROOM: 506 DOCTOR: DAREK DUARTE MD BIRTHDATE: [birth year] DOS: 08/28/2017 SUBJECTIVE: She has been noted about the same. The patient yesterday with nonproductive cough and wheezing. Denies symptoms of chest pain. She is n.p.o. past midnight for bronchoscopy. Denies symptoms of hemoptysis. The patient would like to be started on the nutrition support with Pulmocare or other nutritional supplements. OBJECTIVE: VITAL SIGNS: Recorded this morning, normal temperature, respiratory rate 19, heart rate 99 to 110, blood pressure 168/91 to 148/85. Pulse oxygen saturation on 4 L nasal cannula was still noted 96% saturation. HEENT: Shows no acute change. NECK: Supple. CARDIOVASCULAR: S1, S2 audible. LUNGS: Showed diffuse reduced breath sounds bilaterally with expiratory wheezing. No crackles. ABDOMEN: Soft and nontender. EXTREMITIES: Loss of muscle mass without any edema. CENTRAL NERVOUS SYSTEM: Nonfocal. SKIN: No lesions or rashes. LABORATORY DATA: CBC today, WBC count was noted as normal. Remaining CBC was normal. BMP this morning, glucose 138 and BUN and creatinine was normal. Remaining electrolytes were noted completely normal. Troponin noted normal today as well. IMPRESSION: 1. Ongoing acute exacerbation of chronic obstructive pulmonary disease with acute on chronic hypoxic respiratory failure. 2. Acute tracheobronchitis, suspected mucus impaction of the major airway and acute chronic protein-calorie malnutrition related to advanced chronic obstructive pulmonary disease. 3. Tachycardia related to acute exacerbation of chronic obstructive pulmonary disease as well. PLAN OF TREATMENT: Proceed with bronchoscopy as planned today. Any additional change in treatment if necessary will be done after bronchoscopy. The patient was ordered nutrition supplements in the form of Pulmocare 1 can 4 times a day that should give her about 1000 extra calories support. Prealbumin level was ordered. Other medical management to be continued. Supportive care. [place], [place] PROGRESS NOTE NAME: FRANCO PETTIT UNIT #: [id number] ROOM: 506 DOCTOR: DAREK DUARTE MD BIRTHDATE: [birth year] DAREK MCLEOD MD CM:PNTRANS [id number] DAREK HAINES MD 08/28/17 1436 interface
[2017-08-26 20:46] VITALS: BP 116/91
[~2017-08-26 20:46] MED LIST changes: +ACID CONTROLLER20 M1 PO; +BROVANA15 MCG/2 M INH; +D-1000 185 MG-11 TAB PO; +DUONEB 3 MG/3 ML3 M1 INH; +GUAIFENESIN600 MG PO; +LOVENOX30 MG/0.3 SC; +NOVOLOG FLEX100 U/ML SC; +PERCOCET 325 MG1 TA6 PO; +PULMICORT RESP0.5 MG INH; +SENOKOT S 50 MG1 TAB PO
[2017-08-26 21:00] VITALS: BP 120/95
[2017-08-26] MEDS ORDERED: DELTASONE20 M1 PO (21:10)
[2017-08-26 21:30] VITALS: BP 116/91
[2017-08-26 21:36] LABS: BASO % 0.1 % (0.0-1.0); EOS # 0.1 10*3/uL (0.0-0.4); EOS % 0.8 % (1.0-4.0); HEMATOCRIT 42.6 % (37.0-47.0); HEMOGLOBIN 13.9 g/dl (12.0-16.0); LYMPH # 1.4 10*3/uL (1.3-4.4); LYMPH % 13.2 % (27.0-41.0); MEAN CELL VOLUME 87.7 fl (81.0-99.0); MEAN CORPUSCULAR HGB 28.6 pg (27.0-31.0); MEAN CORPUSCULAR HGB CONC 32.6 g/dl (33.0-37.0); MEAN PLATELET VOLUME 9.1 fl (9.6-12.3); MONO # 0.8 10*3/uL (0.1-1.0); MONO % 7.5 % (3.0-9.0); NEUT # 8.1 10*3/uL (2.3-7.9); NEUT % 78.1 % (47.0-73.0); PLATELET COUNT AUTOMATED 220 10*3/uL (130-400); RED BLOOD COUNT 4.86 10*6/uL (4.10-5.10); RED CELL DISTRI WIDTH 13.3 % (0-14.5); WHITE BLOOD COUNT 10.3 10*3/uL (4.8-10.8)
[2017-08-26 21:46] LABS: ACT PARTIAL THROMBO TIME 21.5 SECONDS (20.8-31.5)
[2017-08-26 21:53] LABS: ALBUMIN 3.9 gm/dl (3.1-4.5); ALKALINE PHOSPHATASE 59 U/L (45-117); BUN 19 mg/dl (7-24); CHLORIDE 101 mmol/L (98-107); CREATININE 0.41 mg/dL (0.55-1.02); POTASSIUM 3.6 mmol/L (3.5-5.1); SGOT/AST 12 IU/L (3-35); SGPT/ALT 20 U/L (12-78); SODIUM 142 mmol/L (136-145); TOTAL PROTEIN 6.9 gm/dL (6.4-8.2); TROPONIN I 0.027 ng/ml (<0.045)
[2017-08-26 22:00] VITALS: BP 114/86
[2017-08-26 22:35] VITALS: BP 131/75
[2017-08-26 22:45] VITALS: BP 131/75
[2017-08-27] VITALS: BP 131/75
[2017-08-27 03:33] LABS: HEMATOCRIT 38.8 % (37.0-47.0); HEMOGLOBIN 12.3 g/dl (12.0-16.0); MEAN CELL VOLUME 90.2 fl (81.0-99.0); MEAN CORPUSCULAR HGB 28.6 pg (27.0-31.0); MEAN CORPUSCULAR HGB CONC 31.7 g/dl (33.0-37.0); MEAN PLATELET VOLUME 9.3 fl (9.6-12.3); PLATELET COUNT AUTOMATED 182 10*3/uL (130-400); RED CELL DISTRI WIDTH 13.3 % (0-14.5); WHITE BLOOD COUNT 6.9 10*3/uL (4.8-10.8)
[2017-08-27 03:48] LABS: ACT PARTIAL THROMBO TIME 22.4 SECONDS (20.8-31.5)
[2017-08-27 03:52] LABS: ALBUMIN 3.5 gm/dl (3.1-4.5); ALKALINE PHOSPHATASE 54 U/L (45-117); BUN 21 mg/dl (7-24); CHLORIDE 100 mmol/L (98-107); CREATININE 0.69 mg/dL (0.55-1.02); PHOSPHOROUS 2.4 mg/dL (2.5-4.9); POTASSIUM 3.3 mmol/L (3.5-5.1); SGOT/AST 9 IU/L (3-35); SGPT/ALT 20 U/L (12-78); SODIUM 140 mmol/L (136-145); TOTAL PROTEIN 6.2 gm/dL (6.4-8.2)
[2017-08-27 03:57] LABS: ATYPICAL LYMPHS 2 % (0-0); PLATELET SUFFICIENCY NORMAL (NORMAL); TOTAL CELLS COUNTED 100 #CELLS
[2017-08-27 08:00] VITALS: BP 138/78
[2017-08-27 12:00] VITALS: BP 141/87
[2017-08-27 16:37] VITALS: BP 172/88
[2017-08-27 20:10] VITALS: BP 168/91
[2017-08-27 23:00] VITALS: BP 172/90
[2017-08-28] VITALS (10 sets, daily range): BP systolic 134–170; BP diastolic 69–99
[2017-08-28 07:14] LABS: BASO % 0.1 % (0.0-1.0); HEMATOCRIT 39.8 % (37.0-47.0); HEMOGLOBIN 13.2 g/dl (12.0-16.0); LYMPH # 0.6 10*3/uL (1.3-4.4); LYMPH % 6.2 % (27.0-41.0); MEAN CELL VOLUME 88.2 fl (81.0-99.0); MEAN CORPUSCULAR HGB 29.3 pg (27.0-31.0); MEAN CORPUSCULAR HGB CONC 33.2 g/dl (33.0-37.0); MEAN PLATELET VOLUME 9.5 fl (9.6-12.3); MONO # 0.5 10*3/uL (0.1-1.0); MONO % 5.1 % (3.0-9.0); NEUT # 8.7 10*3/uL (2.3-7.9); NEUT % 87.9 % (47.0-73.0); RED BLOOD COUNT 4.51 10*6/uL (4.10-5.10); RED CELL DISTRI WIDTH 13.2 % (0-14.5); WHITE BLOOD COUNT 9.9 10*3/uL (4.8-10.8)
[2017-08-28 07:17] LABS: PLATELET COUNT AUTOMATED 255 10*3/uL (130-400)
[2017-08-28 07:26] LABS: CHLORIDE 102 mmol/L (98-107); CREATININE 0.48 mg/dL (0.55-1.02); PHOSPHOROUS 3.4 mg/dL (2.5-4.9); POTASSIUM 3.6 mmol/L (3.5-5.1); SODIUM 138 mmol/L (136-145)
[2017-08-28 07:27] LABS: BUN 10 mg/dl (7-24)
[2017-08-29] VITALS: BP 154/76
[2017-08-29 08:00] VITALS: BP 128/66
[2017-08-29 12:00] VITALS: BP 146/98
[2017-08-29 16:00] VITALS: BP 118/79
[2017-08-29 16:11] LABS: ACID FAST SMEAR Negative (.); ACID FAST SPEC PROCESSING Concentration (.)
[2017-08-29 20:00] VITALS: BP 119/63
[2017-08-30] VITALS: BP 123/71
[2017-08-30 04:00] VITALS: BP 118/73
[2017-08-30 08:00] VITALS: BP 109/57
[2017-08-30 12:00] VITALS: BP 124/73
[2017-08-30] MEDS ORDERED: LISINOPRIL10 M1 PO (13:59)
[2017-08-30] MEDS ORDERED: LEVAQUIN750 M1 PO (13:59)
[2017-08-30] MEDS ORDERED: PREDNISONE10 MG PO (13:59)
== END 2017-08-30 20:17 | disposition home or self-care (01) | DRG 871 ==
LOC: ED 20:46 → 5E 22:00 → EDHOLD 22:00 → 5E 22:14
PROVIDERS: Family Medicine; Internal Medicine Critical Care Medicine; Internal Medicine Nephrology; Student in an Organized Health Care Education/Training Program; ADMIT Internal Medicine
PROC: 0BC38ZZ Extirpation of Matter from Right Main Bronchus, Via Natural or Artificial Opening Endoscopic (ICD-10-PCS; principal; 2017-08-29)
PROC: 0BC68ZZ Extirpation of Matter from Right Lower Lobe Bronchus, Via Natural or Artificial Opening Endoscopic (ICD-10-PCS; principal; 2017-08-29)
PROC: 0BC78ZZ Extirpation of Matter from Left Main Bronchus, Via Natural or Artificial Opening Endoscopic (ICD-10-PCS; principal; 2017-08-29)
PROC: 0BCB8ZZ Extirpation of Matter from Left Lower Lobe Bronchus, Via Natural or Artificial Opening Endoscopic (ICD-10-PCS; principal; 2017-08-29)
PROC: 0BC88ZZ Extirpation of Matter from Left Upper Lobe Bronchus, Via Natural or Artificial Opening Endoscopic (ICD-10-PCS; principal; 2017-08-29)
PROC: 0BC48ZZ Extirpation of Matter from Right Upper Lobe Bronchus, Via Natural or Artificial Opening Endoscopic (ICD-10-PCS; principal; 2017-08-29)
PROC: 0BC58ZZ Extirpation of Matter from Right Middle Lobe Bronchus, Via Natural or Artificial Opening Endoscopic (ICD-10-PCS; principal; 2017-08-29)
PROC: 0BC98ZZ Extirpation of Matter from Lingula Bronchus, Via Natural or Artificial Opening Endoscopic (ICD-10-PCS; principal; 2017-08-29)
PROC: 0BC18ZZ Extirpation of Matter from Trachea, Via Natural or Artificial Opening Endoscopic (ICD-10-PCS; principal; 2017-08-29)
DX: A41.9 Sepsis, unspecified organism (principal); J18.9 Pneumonia, unspecified organism; J96.21 Acute and chronic respiratory failure with hypoxia; E43 Unspecified severe protein-calorie malnutrition; R64 Cachexia; J96.10 Chronic respiratory failure, unspecified whether with hypoxia or hypercapnia; J44.0 Chronic obstructive pulmonary disease with (acute) lower respiratory infection; J44.1 Chronic obstructive pulmonary disease with (acute) exacerbation; F41.9 Anxiety disorder, unspecified; Z85.118 Personal history of other malignant neoplasm of bronchus and lung; F32.9 Major depressive disorder, single episode, unspecified; K21.9 Gastro-esophageal reflux disease without esophagitis; F12.10 Cannabis abuse, uncomplicated; F17.210 Nicotine dependence, cigarettes, uncomplicated; J20.9 Acute bronchitis, unspecified; G47.00 Insomnia, unspecified; Z90.2 Acquired absence of lung [part of]; Z82.49 Family history of ischemic heart disease and other diseases of the circulatory system; Z88.8 Allergy status to other drugs, medicaments and biological substances; Z79.899 Other long term (current) drug therapy; Z71.6 Tobacco abuse counseling; Z87.01 Personal history of pneumonia (recurrent)

== ENCOUNTER 2017-09-06 18:49 | Inpatient (IN) | payer SELFPAY ==
[~2017-09-06] VITALS: Ht 165.1 cm; Wt 33.4 kg
--- NOTE | ~2017-09-06 | PR ---
[place], [place] PROGRESS NOTE NAME: FRANCO PETTIT UNIT #: [id number] ROOM: 409 DOCTOR: HARSHA HAINES MD,DAREK BIRTHDATE: [birth year] DOS: 09/08/2017 SUBJECTIVE: She has been noted comfortable at this time without any acute distress, still noted wheezing, nonproductive cough and shortness of breath with exertion. Denies any chest pain. OBJECTIVE: VITAL SIGNS: Temperature 99.1 degrees Fahrenheit, normal temperature, respiratory rate 18-20, heart rate 95-93, blood pressure 130/78-126/73. Pulse oxygen saturation recorded on 2 liters nasal cannula 99-100% saturation. HEENT: No acute change. NECK: Supple. CARDIOVASCULAR: S1, S2 audible. No added sounds. LUNGS: Noted diffuse expiratory wheezing. There were no crackles. ABDOMEN: Soft, nontender. EXTREMITIES: Without any edema. LABORATORY DATA: CBC: WBC count was normal, hemoglobin 9.8, hematocrit 30.2, platelet count was normal. IMPRESSION: 1. The patient with ongoing acute exacerbation of chronic obstructive pulmonary disease with acute tracheobronchitis. 2. History of chronic nicotine dependence as well. PLAN OF MANAGEMENT: Continuation of the bronchodilators, oxygen supplementation, corticosteroids as previously without any changes in the dose. Supportive care. Nicotine replacement therapy will be continued. DAREK MCLEOD MD CM:PNTRANS [id number] DAREK HAINES MD 09/08/17 1530 interface
--- NOTE | ~2017-09-06 | PR ---
[place], [place] PROGRESS NOTE NAME: FRANCO PETTIT UNIT #: [id number] ROOM: 409 DOCTOR: HARSHA HANIES MD,DAREK BIRTHDATE: [birth year] DOS: 09/10/2017 SUBJECTIVE: She has been noted essentially the same as previously, still noted to be wheezing at times with nonproductive cough. Denies symptoms of chest pain or hemoptysis. The patient denies symptoms of pain in the lower extremities. OBJECTIVE: VITAL SIGNS: Recorded and show temperature noted as normal, respiratory rate recorded 18, heart rate 113 to 104, and blood pressure 140/86 to 147/77. HEENT: No new change. NECK: Supple. CARDIOVASCULAR: S1, S2 audible. LUNGS: Noted moderate expiratory wheezing without changes from yesterday. ABDOMEN: Soft and nontender. IMPRESSION: The patient with slow progression and improvement in the chronic obstructive pulmonary disease exacerbation ____ history of nicotine dependence and acute bronchitis. PLAN OF TREATMENT: The patient will be recommended about half-way facility placement for the continuation of IV Solu-Medrol. Physical therapy and occupation therapy ____ home discharge consideration. DAREK MCLEOD MD CM:SUKHDEEP [id number] DAREK HAINES MD 09/10/17 1209 interface
--- NOTE | ~2017-09-06 | CON ---
[place], [place] REPORT OF CONSULTATION NAME: FRANCO PETTIT UNIT #: [id number] ROOM: 409 DOCTOR: DAREK DUARTE MD BIRTHDATE: [birth year] DOS: 09/07/2017 CONSULTATION REQUESTED BY: Hospitalist services. REASON FOR CONSULTATION: Reassessment of COPD exacerbation. HISTORY OF PRESENT ILLNESS: This is a 61-year-old white female who is known to me from the past. The patient has been admitted to the hospital and treated and discharged home recently. The patient was sent home on tapering dose of prednisone and antibiotics. The patient reported increase in respiratory symptom, which has been described in the last 24-48 hours. The symptoms have been noted to gradually worsen. The patient stated that she had ran out of albuterol sulfate breathing treatment as well. She reported symptoms of cough, which has been noted without any sputum expectoration. She denies any symptoms of chest pain or hemoptysis. Wheezing was noted excessively for the patient as well. REVIEW OF SYSTEMS: CONSTITUTIONAL: Fatigue and tiredness reported. There was fever or chills. EYES: Denies any burning, discharge, redness or pain. EAR, NOSE, AND THROAT: Denies sore throat, hoarseness, postnasal drainage epistaxis or otalgia. CARDIOVASCULAR: Denies anginal pain, edema or pain of the lower extremities. GASTROINTESTINAL: Denies dysphagia, nausea, vomiting, diarrhea, abdominal pain, hematemesis, melena, or hematochezia. SKIN: Denied any lesions or rashes. MUSCULOSKELETAL: Denies acute joint pain, redness, or deformities. CENTRAL NERVOUS SYSTEM: Denies any diplopia, headache, or syncopal episode. Chronic dizziness for the patient has been noted intermittently. Remaining systems were reviewed, they were noted all negative. The patient was noted with recent hospitalization. The patient was treated for acute exacerbation of COPD and acute tracheobronchitis. The patient has been admitted to the hospital on 08/26/2017 until 08/30/2017. She did require therapeutic bronchoscopy at that time. The cultures were noted with no bacterial growth isolation. PAST MEDICAL HISTORY: 1. Advanced centrilobular emphysema/COPD. 2. MRSA pneumonia history. 3. Non-small cell lung cancer. The patient with left upper lobectomy. 4. Nicotine dependence. 5. Chronic protein-calorie malnutrition. 6. Chronic hypoxic respiratory failure, use of oxygen between 2-4 liter nasal cannula. PAST SURGICAL HISTORY: 1. Left upper lobectomy in 2010 for non-small cell lung cancer. 2. Therapeutic bronchoscopy, last was done for this patient on 08/28/2017. [place], [place] REPORT OF CONSULTATION NAME: FRANCO PETTIT UNIT #: [id number] ROOM: 409 DOCTOR: HARSHA HAINES MD,DAREK BIRTHDATE: [birth year] 3. Biopsy of the left breast that was benign. SOCIAL HISTORY: The patient is and lives at home. Tobacco use, started as teenager up to 3 packs of cigarettes per day. Currently continue to smoke a pack of cigarettes per day. There was history of alcohol or illicit drug use. She has worked for about a couple of years and has been noted inhalation of dust at her job. FAMILY HISTORY: The patient's mother aged 75 years due to complication related to myocardial infarction. Father aged 74 years due to complications of unknown medical illnesses. MEDICATIONS: Home medications which were listed at the time of admission: 1. Albuterol sulfate 2.5 mg via nebulizer four times a day p.r.n. for shortness of breath. 2. Flonase 1 spray each nostril b.i.d. 3. Mucinex 600 mg p.o. b.i.d. 4. DuoNeb q.4-6h. p.r.n. for shortness of breath. 5. Lisinopril 10 mg daily. 6. Prednisone 20 mg daily. DRUG ALLERGIES: Noted allergy to: 1. IODINE. 2. MERCURY. PHYSICAL EXAMINATION: GENERAL: A 61-year-old female who has been currently lying in the bed without any acute distress. Height of 5 feet 5 inches, weight of 73 pounds. The patient's BMI of 12. VITAL SIGNS: Which were recorded, showed the temperature noted normal since admission of yesterday. Respiratory rate range between 18-22, heart rate of 111-90, blood pressure 117/71-97/73. Pulse oxygen saturation on 2 liters nasal cannula, 98% saturation of oxygen. HEENT: Examination shows chronic loss of muscle mastication. Head was atraumatic. Eyes nonicterus. NECK: Supple. CARDIOVASCULAR: S1, S2 audible. LUNGS: The patient was noted with moderate reduction in breath sounds. Diffuse expiratory wheezing without any crackles. ABDOMEN: Soft, flat, nontender, bowel sounds present. EXTREMITIES: Without any edema, clubbing, or cyanosis. CENTRAL NERVOUS SYSTEM: The patient's cranial nerves 2-12 intact. MUSCULOSKELETAL: No deformities. SKIN: No lesions or rashes. LABORATORY DATA: CBC on 09/06/2017; WBC count 11.9, hemoglobin and hematocrit, platelet count were normal. Lactic acid 1.3 on 09/06/2017. Influenza A and B nasal washing antigen negative. RSV antigen for the patient was also noted negative. The BMP for this patient on 09/06/2017; BUN normal, creatinine was normal. CO2 34. LFTs were noted decreased in albumin, otherwise normal. CBC [place], [place] REPORT OF CONSULTATION NAME: FRANCO PETTIT UNIT #: [id number] ROOM: [facility] [birth year] this morning remains essentially normal WBC count and platelet count. BMP of the patient, normal BUN and creatinine. Potassium 3.4. Remaining LFTs still showed decreased total protein and albumin. PT/PTT were noted normal this morning. The chest x-ray of the patient that was done, 1 view in the Emergency Room, shows postoperative changes on the left upper lobectomy with some scarring noted. Changes of severe COPD, hyperinflation noted without any other area of acute pulmonary infiltration or other abnormalities. IMPRESSION: 1. The patient with recurrence of acute exacerbation of chronic obstructive pulmonary disease, acute tracheobronchitis with history of chronic hypoxic respiratory failure with nicotine dependence and noncompliance with the treatment, probably will be resulting in recurrence of the respiratory symptom with viral or bacterial bronchitis to be considered as well in addition to that. 2. Lack of regular followup in my office as well. The patient was also taking suboptimal medication for chronic obstructive pulmonary disease from the past as well. 3. Metabolic alkalosis secondary to chronic hypercarbia. 4. Chronic protein calorie malnutrition status. PLAN OF MANAGEMENT: The patient is currently getting Solu-Medrol 40 mg q.8h. that will be continued. She was also getting DVT prophylaxis, Mucinex 600 mg 3 times a day and DuoNeb every 4 hours with the antibiotics, azithromycin and Rocephin that will be continued. The respiratory status to be monitored. Continue to manage and monitor the oxygen saturation to 90% greater. Ordered the respiratory viral panel for this patient as well. Sputum for Gram stain culture will be ordered as well. Nicotine replacement patches will be ordered as well. Additional treatment changes for the patient will be made based on progression of illness. No changes need to be made for the patient in the dose of the steroids and other medication, which has already been continued and given to this patient. Thank you for allowing me to participate in the care of this patient. DAREK MCLEOD MD CM:CONSTR:REPORT OF CONSULTATION 1551 09/08/17 0157 interface
--- NOTE | ~2017-09-06 | PR ---
[place], [place] PROGRESS NOTE NAME: FRANCO PETTIT UNIT #: [id number] ROOM: 409 DOCTOR: HARSHA HAINES MD,DAREK BIRTHDATE: [birth year] DOS: 09/12/2017 SUBJECTIVE: She has been noted comfortable at this time, resting on the bed, still noted with wheezing intermittently. Shortness of breath and cough have been improving. She has been ambulating in her room. OBJECTIVE: VITAL SIGNS: This morning, normal temperature, respiratory rate 20, heart rate of 101, blood pressure 156/82. Pulse ox saturation recorded at 96% saturation. HEENT: No acute change. CARDIOVASCULAR: S1, S2 audible. LUNGS: Noted moderate decreased breath sounds. Mild expiratory wheezing, no crackles. ABDOMEN: Soft and nontender. EXTREMITIES: Without any edema. IMPRESSION: 1. The patient is stable, respiratory status was noted at this time, resolving acute exacerbation of chronic obstructive pulmonary disease with acute tracheobronchitis progressively. LABORATORY DATA: Culture of the sputum for the patient was noted as moderate growth of yeast. Preliminary final culture results were pending. Respiratory viral panel was noted as negative. PLAN OF TREATMENT: The patient could be discharged home on tapering dose of prednisone and to continue previous home medications. Other supportive therapy, plan and management as previously. Abstinence of tobacco use, but strongly recommended the patient to prevent exacerbation of COPD and regular use of respiratory medications as well. DAREK MCLEOD MD CM:PNTRANS [id number] DAREK HAINES MD 09/13/17 0152 interface
--- NOTE | ~2017-09-06 | PR ---
[place], [place] PROGRESS NOTE NAME: FRANCO PETTIT UNIT #: [id number] ROOM: 409 DOCTOR: HARSHA HAINES MD,DAREK BIRTHDATE: [birth year] DOS: 09/09/2017 SUBJECTIVE: The patient was seen and examined at 09/09/2017. She has been noted with wheezing and cough, which has been noted slow improvement; however, still noted with ongoing acute respiratory symptoms, coughing, wheezing or shortness of breath with exertion. Denies symptoms of chest pain. OBJECTIVE: VITAL SIGNS: Normal temperature, respiratory rate 18, heart rate 116. This morning at 8:00, blood pressure 155/88. Pulse oxygen saturation of the patient recorded on 2 liters nasal cannula 100% saturation. HEENT: No acute change. NECK: Supple. CARDIOVASCULAR: S1, S2 audible. LUNGS: Moderate decreased breath sounds and moderate expiratory wheezing was still noted. ABDOMEN: Soft, nontender. Bowel sounds present. EXTREMITIES: The patient was noted without any edema, clubbing, cyanosis. Chronic muscle mass loss was noted. IMPRESSION: The patient who has been currently noted with ongoing acute exacerbation of chronic obstructive pulmonary disease with acute tracheobronchitis, recurrent hospitalization, history of chronic nicotine dependence. PLAN OF MANAGEMENT: The patient was recommended about placement in a skilled nurse facility for use of the corticosteroid. The patient peripherally intravenously placed on bronchodilators and monitoring prior to home discharge. This was discussed with the patient and she was agreeable to that. DAREK MCLEOD MD CM:PNTRANS [id number] DAREK HAINES MD 09/09/17 1801 interface
--- NOTE | ~2017-09-06 | EKG ---
[place], [place] ELECTROCARDIOGRAM REPORT NAME: FRANCO PETTIT UNIT #: [id number] ROOM: 409 DOCTOR: HARSHA HAINES MD,DAREK BIRTHDATE: [birth year] DOS: 09/06/2017 Electrocardiogram done on 09/06/2017 at 7:46 p.m. IMPRESSION: Sinus tachycardia noted, heart rate of 106 beats per minute. Left anterior fascicular block with nonspecific ST-T changes were also present. DAREK MCLEOD MD CM:EKGRPT:ELECTROCARDIOGRAM REPORT 1824 1910 DAREK HAINES MD
--- NOTE | ~2017-09-06 | PR ---
[place], [place] PROGRESS NOTE NAME: FRANCO PETTIT UNIT #: [id number] ROOM: 409 DOCTOR: HARSHA HAINES MD,DAREK BIRTHDATE: [birth year] DOS: 09/11/2017 SUBJECTIVE: The patient has been noted without any ongoing acute complaints at the present time. Coughing was still noted, mild to moderate with expiratory wheezing. There were no crackles. There was no abdominal pain. OBJECTIVE: VITAL SIGNS: The patient shows a normal temperature, respirations 16, heart rate ____-123 with sinus tachycardia noted yesterday evening. The blood pressure is 135/70 and 152/90. Pulse oxygen saturation on 2 liters nasal cannula 96% saturation. HEENT: No acute change. NECK: Supple. CARDIOVASCULAR: S1, S2 audible. LUNGS: The patient mild decreased breath sounds with expiratory wheezing was still present in the lungs bilaterally. ABDOMEN: Soft, nontender, bowel sounds present. LABORATORY DATA: CBC: Mild anemia for the patient noted otherwise normal. The creatinine were noted normal. IMPRESSION: 1. The patient with persistent acute exacerbation of chronic obstructive pulmonary disease, acute tracheobronchitis with expiratory wheezing still present. 2. Sinus tachycardia, most likely was suspected related to underlying chronic obstructive pulmonary disease and medications induced. PLAN OF MANAGEMENT: Continue corticosteroids, bronchodilators, and other therapy as previously. Usual care, other supportive plan of management and treatment. Additional treatment changes to be made for the patient based on progression of the illness. DAREK MCLEOD MD CM:PNTRANS [id number] DAREK HAINES MD 09/11/17 1657 interface
[2017-09-06 18:49] VITALS: BP 113/77
[~2017-09-06 18:49] MED LIST changes: +DELTASONE20 M1 PO; +LEVAQUIN750 M1 PO; +LISINOPRIL10 M1 PO
[2017-09-06 19:28] VITALS: BP 98/73
[2017-09-06 19:52] LABS: BASO % 0.2 % (0.0-1.0); EOS # 0.1 10*3/uL (0.0-0.4); EOS % 0.4 % (1.0-4.0); HEMATOCRIT 43.3 % (37.0-47.0); HEMOGLOBIN 13.9 g/dl (12.0-16.0); MEAN CELL VOLUME 89.3 fl (81.0-99.0); MEAN CORPUSCULAR HGB 28.7 pg (27.0-31.0); MEAN CORPUSCULAR HGB CONC 32.1 g/dl (33.0-37.0); MEAN PLATELET VOLUME 9.4 fl (9.6-12.3); MONO # 0.9 10*3/uL (0.1-1.0); MONO % 7.5 % (3.0-9.0); NEUT # 8.8 10*3/uL (2.3-7.9); NEUT % 73.6 % (47.0-73.0); PLATELET COUNT AUTOMATED 198 10*3/uL (130-400); RED BLOOD COUNT 4.85 10*6/uL (4.10-5.10); RED CELL DISTRI WIDTH 12.8 % (0-14.5); WHITE BLOOD COUNT 11.9 10*3/uL (4.8-10.8)
[2017-09-06 20:08] LABS: ALBUMIN 3.1 gm/dl (3.1-4.5); ALKALINE PHOSPHATASE 65 U/L (45-117); BUN 20 mg/dl (7-24); CHLORIDE 102 mmol/L (98-107); CREATININE 0.48 mg/dL (0.55-1.02); POTASSIUM 3.7 mmol/L (3.5-5.1); SGOT/AST 12 IU/L (3-35); SGPT/ALT 18 U/L (12-78); SODIUM 141 mmol/L (136-145); TOTAL PROTEIN 6.2 gm/dL (6.4-8.2)
[2017-09-06 20:10] LABS: TROPONIN I < 0.015 ng/ml (<0.045)
[2017-09-06 20:11] VITALS: BP 121/76
[2017-09-06 20:32] VITALS: BP 104/63
[2017-09-06] MEDS ORDERED: PROAIR HFA8.5 GM INH (20:35)
[2017-09-06] MEDS ORDERED: 24 HOUR ALLER15.8 ML NAS (20:38)
[2017-09-06] MEDS ORDERED: DELTASONE20 M1 PO (20:40)
[2017-09-06 21:51] VITALS: BP 97/73
[2017-09-06 22:00] VITALS: BP 97/53
[2017-09-07] VITALS: BP 107/67
[2017-09-07 04:00] VITALS: BP 112/66
[2017-09-07 06:18] LABS: BASO % 0.1 % (0.0-1.0); EOS # 0.1 10*3/uL (0.0-0.4); EOS % 0.9 % (1.0-4.0); HEMATOCRIT 34.4 % (37.0-47.0); HEMOGLOBIN 11.1 g/dl (12.0-16.0); LYMPH # 1.8 10*3/uL (1.3-4.4); LYMPH % 21.7 % (27.0-41.0); MEAN CELL VOLUME 90.1 fl (81.0-99.0); MEAN CORPUSCULAR HGB 29.1 pg (27.0-31.0); MEAN CORPUSCULAR HGB CONC 32.3 g/dl (33.0-37.0); MEAN PLATELET VOLUME 9.5 fl (9.6-12.3); MONO # 0.6 10*3/uL (0.1-1.0); MONO % 7.3 % (3.0-9.0); NEUT # 5.5 10*3/uL (2.3-7.9); NEUT % 68.4 % (47.0-73.0); PLATELET COUNT AUTOMATED 166 10*3/uL (130-400); RED BLOOD COUNT 3.82 10*6/uL (4.10-5.10); WHITE BLOOD COUNT 8.1 10*3/uL (4.8-10.8)
[2017-09-07 06:29] LABS: ALBUMIN 2.5 gm/dl (3.1-4.5); ALKALINE PHOSPHATASE 51 U/L (45-117); BUN 17 mg/dl (7-24); CHLORIDE 107 mmol/L (98-107); CHOLESTEROL 152 mg/dL (<200); CREATININE 0.31 mg/dL (0.55-1.02); FREE T4 1.26 ng/dl (0.76-1.46); HDL CHOLESTEROL 51 mg/dl (40-60); LDL CHOLESTEROL 86 mg/dL (9-159); PHOSPHOROUS 2.5 mg/dL (2.5-4.9); POTASSIUM 3.4 mmol/L (3.5-5.1); SGOT/AST 13 IU/L (3-35); SGPT/ALT 14 U/L (12-78); SODIUM 143 mmol/L (136-145); TOTAL PROTEIN 4.8 gm/dL (6.4-8.2); TRIGLYCERIDES 77 mg/dl (<150); VLDL CHOLESTEROL 15 mg/dL (6-40)
[2017-09-07 06:43] LABS: ACT PARTIAL THROMBO TIME 21.9 SECONDS (20.8-31.5)
[2017-09-07 08:00] VITALS: BP 117/71
[2017-09-07 12:00] VITALS: BP 125/73
[2017-09-07 16:00] VITALS: BP 107/58
[2017-09-07 20:00] VITALS: BP 135/75
[2017-09-08] VITALS: BP 138/78
[2017-09-08 06:51] LABS: HEMATOCRIT 30.2 % (37.0-47.0); HEMOGLOBIN 9.8 g/dl (12.0-16.0); MEAN CELL VOLUME 89.3 fl (81.0-99.0); MEAN CORPUSCULAR HGB CONC 32.5 g/dl (33.0-37.0); MEAN PLATELET VOLUME 9.5 fl (9.6-12.3); PLATELET COUNT AUTOMATED 159 10*3/uL (130-400); RED BLOOD COUNT 3.38 10*6/uL (4.10-5.10); RED CELL DISTRI WIDTH 12.9 % (0-14.5); WHITE BLOOD COUNT 9.9 10*3/uL (4.8-10.8)
[2017-09-08 06:55] LABS: BUN 14 mg/dl (7-24); CHLORIDE 109 mmol/L (98-107); CREATININE 0.38 mg/dL (0.55-1.02); POTASSIUM 3.8 mmol/L (3.5-5.1); SODIUM 143 mmol/L (136-145)
[2017-09-08 07:42] LABS: PLATELET SUFFICIENCY NORMAL (NORMAL); TOTAL CELLS COUNTED 100 #CELLS
[2017-09-08 08:00] VITALS: BP 126/73
[2017-09-08 12:00] VITALS: BP 131/66
[2017-09-08 16:14] VITALS: BP 168/87
[2017-09-08 19:59] VITALS: BP 156/72
[2017-09-09] VITALS: BP 137/79
[2017-09-09 08:00] VITALS: BP 155/88
[2017-09-09 12:00] VITALS: BP 152/86
[2017-09-09 16:00] VITALS: BP 146/99; BP 151/89
[2017-09-09 20:00] VITALS: BP 148/89
[2017-09-10] VITALS: BP 147/77
[2017-09-10 08:00] VITALS: BP 148/86
[2017-09-10 12:00] VITALS: BP 139/87
[2017-09-10 16:00] VITALS: BP 136/89
[2017-09-10 20:00] VITALS: BP 167/93
[2017-09-11] VITALS: BP 152/90
[2017-09-11 07:03] LABS: BASO % 0.2 % (0.0-1.0); HEMATOCRIT 32.9 % (37.0-47.0); HEMOGLOBIN 11.1 g/dl (12.0-16.0); LYMPH # 0.6 10*3/uL (1.3-4.4); LYMPH % 5.9 % (27.0-41.0); MEAN CELL VOLUME 87.5 fl (81.0-99.0); MEAN CORPUSCULAR HGB 29.5 pg (27.0-31.0); MEAN CORPUSCULAR HGB CONC 33.7 g/dl (33.0-37.0); MEAN PLATELET VOLUME 9.6 fl (9.6-12.3); MONO # 0.5 10*3/uL (0.1-1.0); MONO % 4.7 % (3.0-9.0); NEUT # 9.4 10*3/uL (2.3-7.9); NEUT % 87.4 % (47.0-73.0); PLATELET COUNT AUTOMATED 195 10*3/uL (130-400); RED BLOOD COUNT 3.76 10*6/uL (4.10-5.10); RED CELL DISTRI WIDTH 13.2 % (0-14.5); WHITE BLOOD COUNT 10.7 10*3/uL (4.8-10.8)
[2017-09-11 07:28] LABS: CREATININE 0.53 mg/dL (0.55-1.02)
[2017-09-11 08:00] VITALS: BP 135/78
[2017-09-11 12:00] VITALS: BP 137/87
[2017-09-11 16:00] VITALS: BP 142/81
[2017-09-11 20:00] VITALS: BP 127/68
[2017-09-12] VITALS: BP 137/72
[2017-09-12 00:04] LABS: ADENOVIRUS Negative (Negative); INFLUENZA A Negative (Negative); INFLUENZA B Negative (Negative); METAPNEUMOVIRUS Negative (Negative); PARAINFLUENZA 1 Negative (Negative); PARAINFLUENZA 2 Negative (Negative); PARAINFLUENZA 3 Negative (Negative); RHINOVIRUS Negative (Negative); RSV A Negative (Negative); RSV B Negative (Negative)
[2017-09-12 08:00] VITALS: BP 144/80
[2017-09-12] MEDS ORDERED: PREDNISONE10 MG PO (10:14)
[2017-09-12] MEDS ORDERED: Vitamin D PO (10:14)
[2017-09-12] MEDS ORDERED: ZITHROMAX500 MG PO (10:14)
[2017-09-12 12:00] VITALS: BP 156/82
== END 2017-09-12 13:31 | disposition home or self-care (01) | DRG 871 ==
LOC: ED 18:49 → EDHOLD 21:00 → 4E 21:00
PROVIDERS: Emergency Medicine Emergency Medical Services; Hospitalist; Internal Medicine; Internal Medicine Critical Care Medicine
DX: A41.9 Sepsis, unspecified organism (principal); E43 Unspecified severe protein-calorie malnutrition; E87.3 Alkalosis; J96.11 Chronic respiratory failure with hypoxia; J18.9 Pneumonia, unspecified organism; F33.9 Major depressive disorder, recurrent, unspecified; J44.0 Chronic obstructive pulmonary disease with (acute) lower respiratory infection; J44.1 Chronic obstructive pulmonary disease with (acute) exacerbation; Z68.1 Body mass index [BMI] 19.9 or less, adult; Z99.81 Dependence on supplemental oxygen; K21.9 Gastro-esophageal reflux disease without esophagitis; E87.6 Hypokalemia; E55.9 Vitamin D deficiency, unspecified; D64.9 Anemia, unspecified; R73.9 Hyperglycemia, unspecified; R73.03 Prediabetes; D72.810 Lymphocytopenia; G47.00 Insomnia, unspecified; J20.9 Acute bronchitis, unspecified; F41.9 Anxiety disorder, unspecified; F17.210 Nicotine dependence, cigarettes, uncomplicated; Z79.899 Other long term (current) drug therapy; Z90.2 Acquired absence of lung [part of]; Z88.8 Allergy status to other drugs, medicaments and biological substances; Z91.041 Radiographic dye allergy status; Z71.6 Tobacco abuse counseling; Z79.51 Long term (current) use of inhaled steroids; Z85.118 Personal history of other malignant neoplasm of bronchus and lung; Z91.19 Patient's noncompliance with other medical treatment and regimen; Z81.1 Family history of alcohol abuse and dependence; Z83.3 Family history of diabetes mellitus; Z82.49 Family history of ischemic heart disease and other diseases of the circulatory system; Z81.2 Family history of tobacco abuse and dependence

== ENCOUNTER 2017-09-16 17:40 | Inpatient (IN) | payer SELFPAY ==
[~2017-09-16] VITALS: Ht 152.4 cm; Wt 40.0 kg
--- NOTE | ~2017-09-16 | PR ---
[place], [place] PROGRESS NOTE NAME: FRANCO PETTIT UNIT #: [id number] ROOM: 412 DOCTOR: CINDY THOMPSON DO BIRTHDATE: [birth year] DOS: 09/18/2017 SUBJECTIVE: The patient was seen and examined at bedside. The patient was sitting upright, in no acute distress. The patient reports that her breathing has improved and her cough has improved since the time of admission. The patient has no new complaints at this time. OBJECTIVE: VITAL SIGNS: Temperature is 98.0, pulse is 109, respiratory rate 18, blood pressure 158/91, pulse ox is 99% on 2 liters nasal cannula, which is the patient's baseline. GENERAL APPEARANCE: The patient is alert and oriented x 3, in no acute distress. HEENT: Normocephalic and atraumatic. Eyes are clear. No injection. Nares are patent. Mucous membranes are moist. NECK: Supple, nontender. CARDIOVASCULAR: S1 and S2 are audible. Regular rate and rhythm. No murmurs, gallops or rubs. LUNGS: Decreased lung sounds. No wheezing is appreciated. No crackles at the bases. ABDOMEN: Soft, nontender, bowel sounds are present. EXTREMITIES: No edema, clubbing or cyanosis. NEUROLOGIC: Cranial nerves are grossly intact. No focal deficits. SKIN: No lesions or rashes. LABORATORY DATA: White count 14.5, hemoglobin 12.0, hematocrit 35.8, platelets 184. Lactic acid this morning was 5.3, reflux lactic acid was 2.6 and is trending downwards. Sodium is 137, potassium 4.3 chloride 95, carbon dioxide 30, BUN 16, creatinine 0.7, glucose 125. Blood cultures remain negative. ASSESSMENT: Chronic obstructive pulmonary disease with shortness of breath and productive cough, status improved. Lungs are clear at this time. The patient continues to improve from when she was admitted. 2. Lactic acidosis, trending downward. 3. Protein calorie malnutrition. 4. Oxygen dependence. 5. History of small cell lung cancer. TREATMENT PLAN: The patient is medically stable at this time to be discharged. Antibiotics will be switched to oral ciprofloxacin and steroids to continue her treatment as outpatient. The patient is encouraged to follow up with Dr. Mcleod as outpatient in the next couple of weeks for further care. CINDY THOMPSON DO [place], [place] PROGRESS NOTE NAME: FRANCO PETTIT UNIT #: [id number] ROOM: [facility] DOCTOR: CINDY THOMPSON DO BIRTHDATE: [birth year] DAREK MCLEOD MD CM:PNTRANS [id number] CINDY THOMPSON DO 09/18/17 2111 interface
--- NOTE | ~2017-09-16 | CON ---
[place], [place] REPORT OF CONSULTATION NAME: FRANCO PETTIT UNIT #: [id number] ROOM: 412 DOCTOR: CINDY THOMPSON DO BIRTHDATE: [birth year] DOS: 09/17/2017 HISTORY OF PRESENT ILLNESS: The patient is a 61-year-old female who is very well known to Dr. Mcleod, came to the ER last night with complaint of shortness of breath. The patient was recently discharged less than a month ago with pseudomonas pneumonia. The patient reports that her shortness of breath has been worse as of recently and that she has increased shortness of breath with exertion as well, especially when walking. The patient is dependent on O2 supplementation 2.5 liters continuous. The patient has a questionable health insurance and it is suspected that she is not able to get her home medications that she be prescribed every time she gets discharged. The patient additionally complains of cough that is productive with sputum. The patient had associated nausea; however, denied fever, chills, vomiting and chest pain. REVIEW OF SYSTEMS: CONSTITUTIONAL: The patient complains of fatigue and tiredness. Denies fever or chills. The patient denies any discharge or pain. There is redness or itching of the eyes. EARS, NOSE AND THROAT: Denies throat pain. CARDIOVASCULAR: Denies chest pain, edema or swelling in the upper or lower extremities. RESPIRATORY: The patient complains of shortness of breath with productive cough. GASTROINTESTINAL: The patient denies difficulty swallowing, nausea, vomiting, diarrhea, constipation, abdominal pain, blood in the stool or emesis. SKIN: The patient denies rashes or new lesions. MUSCULOSKELETAL: The patient denies joint pain. NEUROLOGIC: The patient denies any change in vision, headaches or dizziness. However, the patient does have a history of chronic dizziness. No change in the symptoms. Remaining review of systems was negative. PAST MEDICAL HISTORY: The patient has: 1. Advanced centrilobular emphysema/COPD. 2. History of MRSA pneumonia and pseudomonas pneumonia. 3. Non-small cell lung cancer with a history of left upper lobe lobectomy. 4. Nicotine dependence. The patient continues to smoke despite being advised to discontinue her smoking. 5. Chronic protein-calorie malnutrition. 6. Chronic hypoxic respiratory failure with oxygen dependence between 2 and 4 liters. 7. Anxiety. 8. Depression. 9. GERD. 10. Insomnia. 11. Vitamin D deficiency. PAST SURGICAL HISTORY: History of recent bronchoscopy, last hospitalization in August, history of lobectomy of the left upper lobe, history of breast biopsy. The left upper lobe lobectomy was in 2009. The last bronchoscopy was on 08/28/2017. [place], [place] REPORT OF CONSULTATION NAME: FRANCO PETTIT UNIT #: [id number] ROOM: 412 DOCTOR: CINDY THOMPSON DO BIRTHDATE: [birth year] SOCIAL HISTORY: The patient is and lives at home, continues to abuse a pack tobacco. Although, she has decreased the amount that she smokes. At one point, she was smoking 3 packs of cigarettes per day. The patient denies alcohol or drug abuse. FAMILY HISTORY: Father has a history of tobacco abuse, at age 74 of an unknown cause. Mother has a history of alcohol abuse, at age 58 due to ID. ALLERGIES: The patient is allergic to IODINE and MERCURY. HOME MEDICATIONS: Albuterol, azithromycin, fluticasone, guaifenesin, DuoNeb, lisinopril and prednisone. PHYSICAL EXAMINATION: GENERAL APPEARANCE: The patient is a 61-year-old female who is lying in bed, in no acute distress, alert and oriented x 3. VITAL SIGNS: Temperature is 98.0, pulse is 97, respirations 20, blood pressure 111/63, pulse ox is 98% on 3 liters nasal cannula. HEENT: The patient has cachexia with chronic loss of muscle mass. Eyes are clear with no injection. NECK: Supple. No masses noted. CARDIOVASCULAR: S1, S2 is audible. Regular rate and rhythm. No murmurs, gallops or rubs. LUNGS: The patient has no wheezing. Clear breath sounds, no crackles were noted. ABDOMEN: Soft, nontender. Bowel sounds are present. EXTREMITIES: No edema, clubbing or cyanosis. NEUROLOGIC: Cranial nerves are intact grossly. SKIN: No lesions or rashes. LABORATORY DATA: White count 9.4, hemoglobin 12.2, hematocrit 38.1, platelets 149. Lactic acid this morning was 4.8, which is up from 2.4 from 7:00 this morning, the 4.8 was at 9:26 this morning. Reflex lactic acid is pending. Blood cultures are pending. ASSESSMENT: 1. Chronic obstructive pulmonary disease with the shortness of breath and productive cough. Lungs are clear. This is the best the patient has been during her multiple hospitalizations over the past few months. 2. Lactic acidosis likely secondary to a component of her chronic obstructive pulmonary disease. 3. Severe sepsis. 4. Chronic protein-calorie malnutrition. 5. Oxygen dependence. 6. History of non-small cell lung cancer status post left upper lobe lobectomy. TREATMENT PLAN: The patient had positive pseudomonas last time she was here in her cultures, which was sensitive to Levaquin and Cipro. Our recommendation at [place], [place] REPORT OF CONSULTATION NAME: FRANCO PETTIT UNIT #: [id number] ROOM: 412 DOCTOR: CINDY THOMPSON DO BIRTHDATE: [birth year] this time is to start on Cipro due to the affordability that would increase changes the patient to be compliant upon discharge. Continue with Solu-Medrol, DuoNeb, IV fluids and Diflucan. Discontinue vancomycin and Zosyn. We will continue to follow this patient. Thank you so much for this consult. CINDY THOMPSON DO DAREK MCLEOD MD CM:CONSTR:REPORT OF CONSULTATION 1149 09/18/17 0230 interface
--- NOTE | ~2017-09-16 | EKG ---
[place], [place] ELECTROCARDIOGRAM REPORT NAME: FRANCO PETTIT UNIT #: [id number] ROOM: 412 DOCTOR: EN CAICEDO MD BIRTHDATE: [birth year] DOS: 09/16/2017 TIME: 1832. ASSESSMENT: Sinus tachycardia, left axis deviation, low voltage limb leads. Abnormal ECG. No prior EKGs to compare. En Caicedo MD CM:EKGRPT:ELECTROCARDIOGRAM REPORT 10 21 EN CAICEDO MD
--- NOTE | ~2017-09-16 | CON ---
[place], [place] REPORT OF CONSULTATION NAME: FRANCO PETTIT UNIT #: [id number] ROOM: 412 DOCTOR: HARSHA HAINES MD,DAREK BIRTHDATE: [birth year] DOS: 09/17/2017 The patient was independently seen today with [id number] encounter for today's evaluation, 09/17/2017. All the available labs were reviewed. Through the physical examination performed, history was confirmed for the patient. The note done by the medical social consultant was approved. Assessment and management personally completed for today's visit. HISTORY OF PRESENT ILLNESS: This is a 61-year-old white female who has been admitted to the hospital frequently. The patient came into the Emergency Room. The patient admitted to the hospital after previous discharge from the hospital. On 09/16/2017, she reported with mild cough but main symptom was described as dyspnea with exertion. She stated she has been taking the medications, still smoking few cigarettes a day. Denies symptoms of chest pain. The patient does have symptoms of wheezing at times. There were symptoms of chest pain, chest tightness reported some time. REVIEW OF SYSTEMS, PAST MEDICAL HISTORY, FAMILY, SURGICAL, SOCIAL HISTORY: Was all done by the medical social consultant and approved. MEDICATIONS: Administered was noted as use of IV Solu-Medrol 60 mg q.8 hours, Protonix, DuoNeb q.4h., IV Zosyn, vancomycin, and Rocephin. PHYSICAL EXAMINATION: GENERAL: A 61-year-old female has been currently sitting on the bed without acute distress. Height of 5 feet, weight of 152 pounds. VITAL SIGNS: For the patient, which have been recorded shows normal temperature, respiratory rate of 20-18, heart rate 97-103, blood pressure 111/63-104/71, pulse oxygen saturation on 2 liters 94% saturation. LUNGS: Noted with mild expiratory wheezing, no crackles. ABDOMEN: Soft, flat, nontender. EXTREMITIES: Without edema. CENTRAL NERVOUS SYSTEM: Cranial nerves 2-12 intact. No focal deficit. SKIN: Visible skin with scattered bruising skin related to previous medication use. There was edema. There was no abnormal rashes. MUSCULOSKELETAL: No gross deformities. LABORATORY DATA: CMP yesterday on admission; BUN 26, creatinine was normal, CO2 of 37. Albumin decreased 2.7. The culture of the past sputum for this patient done on 09/10/2017 was noted with moderate growth of Pseudomonas aeruginosa and was sensitive to the fluoroquinolones. CBC of the patient; WBC count 13.7, remaining CBC was noted normal yesterday on admission. Lactic acid on admission 2.7 and noted variable for the patient at different times. CMP this morning; glucose 193, BUN and creatinine was normal. Chest x-ray of the patient which was done yesterday from the PACS image of 09/16/2017 for the patient does not show any acute pulmonary infiltration. IMPRESSION: 1. The patient with recurrent exacerbation of chronic obstructive pulmonary disease with acute bronchitis with Pseudomonas aeruginosa, possibility of [place], [place] REPORT OF CONSULTATION NAME: FRANCO PETTIT UNIT #: [id number] ROOM: [facility] DOCTOR: DAREK DUARTE MD BIRTHDATE: [birth year] noncompliance with the medication and history of chronic nicotine dependence use was considered resulting in recurrent hospitalization and exacerbation of chronic obstructive pulmonary disease. 2. History of past lung cancer with lobectomy several years ago as well. PLAN OF TREATMENT AND RECOMMENDATION: Reduce the Solu-Medrol dose for the patient to the lower dose. Start the patient on Levaquin interventionally for the medical management of Pseudomonas aeruginosa tracheobronchitis. Continuation of the bronchodilator for the patient every 4 hours. Other supportive plan of therapy care plan. Monitoring the respiratory status closely. Supportive plan of management and care as previously in progress. Start the patient on Dulera 200/5 two inhalations b.i.d. for the long-term management of her obstructive lung disease. Usual care, other plan of management and therapies. DAREK MCLEOD MD CM:CONSTR:REPORT OF CONSULTATION 1510 09/18/17 0045 interface
--- NOTE | ~2017-09-16 | PR ---
[place], [place] PROGRESS NOTE NAME: FRANCO PETTIT UNIT #: [id number] ROOM: 412 DOCTOR: HARSHA HAINES MD,DAREK BIRTHDATE: [birth year] DOS: 09/18/2017 SUBJECTIVE: The patient was independently seen and examined with [id number] encounter. The history of the patient personally taken. Physical examination performed. The assessment and management of the patient was personally completed for today's visit. Note done by the medical reimbursement specialist, was approved. The patient has been showing gradual reduction and improvement in respiratory symptoms, still noted with some wheezing and nonproductive cough and shortness of breath. Other symptoms have been improving gradually. There were no symptoms of chest pain. PHYSICAL EXAMINATION: VITAL SIGNS: Reviewed was essentially noted with a heart rate of 100, blood pressure 156/86. RESPIRATORY: Normal temperature was normal. Pulse oxygen saturation on 2 liters nasal cannula 99% saturation. LUNGS: Noted with mild to moderate expiratory wheezing. There were no crackles. ABDOMEN: Soft, nontender. EXTREMITIES: Without any edema. LABORATORY DATA: BMP was noted as normal. CBC, WBC count 14.5. IMPRESSION AND PLAN: Acute Pseudomonas aeruginosa tracheobronchitis with exacerbation of chronic obstructive pulmonary disease, recurrent hospitalization to noncompliance, history of nicotine dependence as well. The patient would be continued at this time with current plan of treatment, ongoing and was planning for discharge the patient home today. If the patient does get discharged, she would require tapering dose of prednisone for the patient as well as oral antibiotic, ciprofloxacin should work based on sensitivity results for the Pseudomonas aeruginosa tracheobronchitis moderate isolation noted on her previous admission. Absolute abstinence of tobacco use was advised. DAREK MCLEOD MD CM:PNTRANS 1522 18 DAREK HAINES MD 09/18/171718 interface
[2017-09-16 17:40] VITALS: BP 123/84
[~2017-09-16 17:40] MED LIST changes: +24 HOUR ALLER15.8 ML NAS; +PROAIR HFA8.5 GM INH; +Vitamin D PO
[2017-09-16 18:38] LABS: HEMATOCRIT 42.2 % (37.0-47.0); HEMOGLOBIN 13.6 g/dl (12.0-16.0); MEAN CELL VOLUME 88.8 fl (81.0-99.0); MEAN CORPUSCULAR HGB 28.6 pg (27.0-31.0); MEAN CORPUSCULAR HGB CONC 32.2 g/dl (33.0-37.0); MEAN PLATELET VOLUME 8.8 fl (9.6-12.3); PLATELET COUNT AUTOMATED 201 10*3/uL (130-400); RED BLOOD COUNT 4.75 10*6/uL (4.10-5.10); RED CELL DISTRI WIDTH 13.2 % (0-14.5); WHITE BLOOD COUNT 13.7 10*3/uL (4.8-10.8)
[2017-09-16 18:56] LABS: ALBUMIN 2.9 gm/dl (3.1-4.5); ALKALINE PHOSPHATASE 57 U/L (45-117); BUN 26 mg/dl (7-24); CHLORIDE 98 mmol/L (98-107); CREATININE 0.57 mg/dL (0.55-1.02); LIPASE 194 U/L (73-393); POTASSIUM 4.3 mmol/L (3.5-5.1); SGOT/AST 18 IU/L (3-35); SGPT/ALT 30 U/L (12-78); SODIUM 140 mmol/L (136-145); TROPONIN I < 0.015 ng/ml (<0.045)
[2017-09-16 19:00] LABS: PLATELET SUFFICIENCY NORMAL (NORMAL); TOTAL CELLS COUNTED 100 #CELLS; TOXIC GRANULATION SLIGHT
[2017-09-16 19:21] LABS: ACT PARTIAL THROMBO TIME 18.9 SECONDS (20.8-31.5); INTERNATIONAL NORM RATIO 0.9 (2.0-3.5)
[2017-09-16 19:58] VITALS: BP 99/66
[2017-09-16 21:28] VITALS: BP 104/67
[2017-09-16 21:59] VITALS: BP 114/77
[2017-09-16 23:00] VITALS: BP 104/71
[2017-09-16 23:12] LABS: BILIRUBIN NEGATIVE (NEGATIVE); BLOOD TRACE-LYSED (NEGATIVE); CLARITY CLOUDY (CLEAR); COLOR YELLOW (YELLOW); GLUCOSE NEGATIVE (NEGATIVE); KETONE NEGATIVE (NEGATIVE); LEUKO ESTERASE NEGATIVE (NEGATIVE); NITRITE NEGATIVE (NEGATIVE); PH 7.5 (5.0-9.0); SPECIFIC GRAVITY 1.015 (1.005-1.030); UROBILINOGEN 0.2 E.U./dl (0.2-1.0)
[2017-09-16 23:15] VITALS: BP 101/70
[2017-09-16 23:23] LABS: RBC 0-2 rbc/hpf (0-2); WBC 0-2 wbc/hpf (0-5)
[2017-09-17 02:17] LABS: HEMATOCRIT 38.1 % (37.0-47.0); HEMOGLOBIN 12.2 g/dl (12.0-16.0); MEAN CELL VOLUME 89.6 fl (81.0-99.0); MEAN CORPUSCULAR HGB 28.7 pg (27.0-31.0); PLATELET COUNT AUTOMATED 149 10*3/uL (130-400); RED BLOOD COUNT 4.25 10*6/uL (4.10-5.10); RED CELL DISTRI WIDTH 13.4 % (0-14.5); WHITE BLOOD COUNT 9.4 10*3/uL (4.8-10.8)
[2017-09-17 02:33] LABS: ALBUMIN 2.6 gm/dl (3.1-4.5); ALKALINE PHOSPHATASE 47 U/L (45-117); BUN 20 mg/dl (7-24); CHLORIDE 100 mmol/L (98-107); CREATININE 0.56 mg/dL (0.55-1.02); PHOSPHOROUS 2.6 mg/dL (2.5-4.9); POTASSIUM 3.8 mmol/L (3.5-5.1); SGOT/AST 11 IU/L (3-35); SGPT/ALT 23 U/L (12-78); SODIUM 138 mmol/L (136-145); TOTAL PROTEIN 5.1 gm/dL (6.4-8.2)
[2017-09-17 02:43] LABS: PLATELET SUFFICIENCY NORMAL (NORMAL); TOTAL CELLS COUNTED 100 #CELLS
[2017-09-17 04:00] VITALS: BP 117/67
[2017-09-17 08:00] VITALS: BP 111/63
[2017-09-17] MEDS ORDERED: ZOLOFT100 MG PO (08:57)
[2017-09-17 12:00] VITALS: BP 120/73
[2017-09-17 16:00] VITALS: BP 124/79
[2017-09-17 20:04] VITALS: BP 135/80
[2017-09-18] VITALS: BP 128/67
[2017-09-18 06:06] LABS: HEMATOCRIT 35.8 % (37.0-47.0); MEAN CELL VOLUME 88.4 fl (81.0-99.0); MEAN CORPUSCULAR HGB 29.6 pg (27.0-31.0); MEAN CORPUSCULAR HGB CONC 33.5 g/dl (33.0-37.0); PLATELET COUNT AUTOMATED 184 10*3/uL (130-400); RED BLOOD COUNT 4.05 10*6/uL (4.10-5.10); RED CELL DISTRI WIDTH 13.4 % (0-14.5); WHITE BLOOD COUNT 14.5 10*3/uL (4.8-10.8)
[2017-09-18 06:18] LABS: BUN 16 mg/dl (7-24); CHLORIDE 95 mmol/L (98-107); PHOSPHOROUS 2.9 mg/dL (2.5-4.9); POTASSIUM 4.3 mmol/L (3.5-5.1); SODIUM 137 mmol/L (136-145)
[2017-09-18 06:28] LABS: ATYPICAL LYMPHS 1 % (0-0); PLATELET SUFFICIENCY NORMAL (NORMAL); TOTAL CELLS COUNTED 100 #CELLS; TOXIC GRANULATION SLIGHT
[2017-09-18 08:00] VITALS: BP 158/91
[2017-09-18] MEDS ORDERED: DOXYCYCLINE100 M3 PO (09:27)
[2017-09-18] MEDS ORDERED: FLUCONAZOLE100 MG PO (09:27)
[2017-09-18] MEDS ORDERED: PREDNISONE10 MG PO (09:27)
[2017-09-18 12:00] VITALS: BP 156/86
[2017-09-18 16:00] VITALS: BP 137/79
[2017-09-18 20:00] VITALS: BP 149/78
[2017-09-19] VITALS: BP 143/84
[2017-09-19 08:00] VITALS: BP 132/82
== END 2017-09-19 11:23 | disposition home or self-care (01) | DRG 871 ==
LOC: ED 17:40 → 4E 22:04 → EDHOLD 22:04 → 4E 22:11
PROVIDERS: Hospitalist; Internal Medicine; Nurse Practitioner Family
DX: A41.52 Sepsis due to Pseudomonas (principal); E43 Unspecified severe protein-calorie malnutrition; E87.2 Acidosis; J96.11 Chronic respiratory failure with hypoxia; Z99.81 Dependence on supplemental oxygen; C34.12 Malignant neoplasm of upper lobe, left bronchus or lung; J44.1 Chronic obstructive pulmonary disease with (acute) exacerbation; Z68.1 Body mass index [BMI] 19.9 or less, adult; J44.0 Chronic obstructive pulmonary disease with (acute) lower respiratory infection; R65.20 Severe sepsis without septic shock; E83.41 Hypermagnesemia; K21.9 Gastro-esophageal reflux disease without esophagitis; F32.9 Major depressive disorder, single episode, unspecified; J20.8 Acute bronchitis due to other specified organisms; R73.9 Hyperglycemia, unspecified; G47.00 Insomnia, unspecified; F41.9 Anxiety disorder, unspecified; Z72.0 Tobacco use; Z71.6 Tobacco abuse counseling; Z91.041 Radiographic dye allergy status; Z91.048 Other nonmedicinal substance allergy status; Z79.899 Other long term (current) drug therapy; Z87.01 Personal history of pneumonia (recurrent); Z90.2 Acquired absence of lung [part of]; Z81.2 Family history of tobacco abuse and dependence; Z81.1 Family history of alcohol abuse and dependence; Z82.49 Family history of ischemic heart disease and other diseases of the circulatory system; Z83.3 Family history of diabetes mellitus

== ENCOUNTER 2017-10-19 19:00 | Inpatient (IN) | payer SELFPAY ==
[~2017-10-19] VITALS: Ht 162.5 cm; Wt 37.2 kg
--- NOTE | ~2017-10-19 | CON ---
[place], [place] REPORT OF CONSULTATION NAME: FRANCO PETTIT UNIT #: [id number] ROOM: 502 DOCTOR: DAREK DUARTE MD BIRTHDATE: [birth year] DOS: 10/20/2017 PULMONARY CONSULTATION, EVALUATION, AND MANAGEMENT REASON FOR CONSULTATION: Assess the patient's current symptoms of shortness of breath. HISTORY OF PRESENT ILLNESS: This is a 62-year-old white female who was known to me from the past with previous recurrent hospitalization, possibly lack of use of regular medication and other care. The patient has been admitted to the hospital again on 10/20/2017. The patient was discharged in this hospital on 09/18/2017 for the medical management of COPD exacerbation. She has a therapeutic bronchoscopy done previously with last bronchoscopy done in 09/2017. She reported back to the hospital. The patient developed symptoms of increased shortness of breath. Denies symptoms of chest pain, coughing, or sputum expectoration. The coughing has been described to be nonproductive. She was also noted wheezing, tightness, and chest pain. REVIEW OF SYSTEMS: CONSTITUTIONAL: Fatigue and tiredness reported. There were no symptoms of fever or chills. EYES: Denies burning, redness, or tenderness. EARS, NOSE, AND THROAT SYMPTOMS: Sore throat, hoarseness, epistaxis, or otalgia. CARDIOVASCULAR: Denies any pain of the lower extremity angina. GASTROINTESTINAL SYMPTOMS: Dysphagia, nausea, vomiting, diarrhea, abdominal pain, hematemesis, melena, hematochezia. The patient has been known with chronic low BMI for many years. MUSCULOSKELETAL SYMPTOMS: Acute joint pain, redness, or tenderness. GENITOURINARY SYMPTOMS: No dysuria, suprapubic pain, or hematuria. SKIN: No lesions or rashes. CENTRAL NERVOUS SYSTEM: No dizziness, headache, diplopia, or syncopal episodes. The patient's remaining systems were reviewed and they were noted all negative. PAST MEDICAL HISTORY: 1. Advanced centrilobular emphysema. 2. Past history of MRSA pneumonia. 3. Non-small cell lung cancer, status post left upper lobectomy. 4. History of nicotine dependence. 5. Chronic protein calorie malnutrition and debility, low BMI less than 18. 6. Chronic hypoxic respiratory failure, use of oxygen 2-4 liter nasal cannula. PAST SURGICAL HISTORY: 1. Left upper lobe evacuation in 2009 for non-small cell lung cancer. 2. Bronchoscopies. 3. Biopsy of the left breast that was benign. SOCIAL HISTORY: The patient is and lives at home. Started smoking cigarettes as a teenager up to 3 packs of cigarettes per day. Currently stating that she is smoking about 3 cigarettes a day. Denies history of alcohol use or [place], [place] REPORT OF CONSULTATION NAME: FRANCO PETTIT UNIT #: [id number] ROOM: [facility] DOCTOR: HARSHA HAINES MD,[facility] BIRTHDATE: [birth year] illicit drug use. She has worked for a couple of years ____ she has been noted sick with inhalation of the dust. FAMILY HISTORY: The patient's mother at 28-hsogr-tax from complication related to myocardial infarction. Father at 74-year-old of unknown medical illnesses. MEDICATIONS: Current administered medication noted use of Solu-Medrol 40 mg q.8 hours, DuoNeb q.4 hours, nicotine replacement patch 14 mg, IV Levaquin, and p.r.n. other medication symptoms management. DRUG ALLERGIES: NOTED ALLERGY: 1. MERCURY. 2. IODINE. PHYSICAL EXAMINATION: GENERAL: A 62-year-old female who has been noted currently awake and alert without any distress. VITAL SIGNS: Height of 5 feet 4 inches, weight of 82 pounds. BMI 14. Normal temperature, respiratory rate 16-20, heart rate of 111-52 with sinus tachycardia, and blood pressure 121/82-166/64. Intake for the patient was 240, output 400 mL. Pulse oxygen saturation on 3 liters nasal cannula is 98% saturation. HEENT: Examination shows head was atraumatic. Eye nonicterus. NECK: Supple. CARDIOVASCULAR: S1, S2 is audible. LUNGS: Examination of the lungs was noted general reduction in breath sounds with moderate diffuse expiratory wheezing. No crackles. ABDOMEN: Flat, soft, and nontender. EXTREMITIES: Without any acute edema. LABORATORY DATA: The patient had CBC done on 10/19/2017 shows hemoglobin 11.0, hematocrit 33.4, otherwise normal CBC. Lactic acid 2.5 on admission and follow up 2.0 on 10/19/2017. PT/PTT of the patient on 10/19/2017 was normal. D-dimer minimally elevated at 0.67. CMP of the patient, BUN 11, creatinine was normal, and potassium 3.4 yesterday. Influenza A and B, nasal washing antigen negative. CBC of this morning, WBC count 3.9, hemoglobin 9.9, hematocrit 30.0, and platelet count 165,000. PT/PTT this morning normal. BMP this morning, normal BUN, creatinine, and the potassium. V/Q scan that was done on this patient was unable to correct per radiologist's report, described possibly intermediate probability. IMPRESSION: 1. The patient is admitted to the hospital with acute tracheobronchitis. 2. Abnormal V/Q scan for the patient. The patient does have CT pulmonary embolism not at this time, cannot be clearly determined. However, my suspicion of pulmonary embolism is low in this patient. PLAN AND RECOMMENDATIONS: Continuation of corticosteroids, bronchodilators, and antibiotics. Order CTA of the chest for the patient with a prep because of [place], [place] REPORT OF CONSULTATION NAME: FRANCO PETTIT UNIT #: [id number] ROOM: [facility] DOCTOR: HARSHA HAINES MD,DAREK BIRTHDATE: [birth year] iodine allergy for more definitive assessment for pulmonary embolism exclusion. In the meantime, continue the patient on other supportive therapy, plan of management, and care plan. DAREK MCLEOD MD CM:CONSTR:REPORT OF CONSULTATION 1412 10/21/17 0111 interface
--- NOTE | ~2017-10-19 | EKG ---
[place], [place] ELECTROCARDIOGRAM REPORT NAME: FRANCO PETTIT UNIT #: [id number] ROOM: 502 DOCTOR: HARSHA HAINES MD,DAREK BIRTHDATE: [birth year] DOS: 10/22/2017 The electrocardiogram done on 10/22/2017. The patient was seen at . Sinus tachycardia noted, heart rate 90-116 beats per minute. Left anterior fascicular block. . The aVL lead for the patient does not have a voltage on that most likely is an error from the machine suspected. DAREK MCELOD MD CM:EKGRPT:ELECTROCARDIOGRAM REPORT 1348 1405 DAREK HAINES MD
--- NOTE | ~2017-10-19 | PR ---
[place], [place] PROGRESS NOTE NAME: FRANCO PETTIT UNIT #: [id number] ROOM: 502 DOCTOR: HARSHA HAINES MD,DAREK BIRTHDATE: [birth year] DOS: 10/24/2017 SUBJECTIVE: The patient has been noted comfortable at this time without any acute distress at the present time. There has not been noted any symptoms of hemoptysis or chest pain. Shortness of breath, cough and other symptoms have been slowly resolving. OBJECTIVE: VITAL SIGNS: For the patient, which have been recorded shows normal temperature, respirations 16, heart rate of 90, blood pressure 130/83. Pulse oxygen saturation was noted as 98% saturation on 2 L nasal cannula. HEENT: No acute change. NECK: Supple. CARDIOVASCULAR: S1, S2 is audible. LUNGS: The patient was noted without any crackles, mild expiratory wheezing bilaterally. ABDOMEN: Soft, nontender. EXTREMITIES: Without any acute edema. IMPRESSION: 1. Progressive resolution of the acute exacerbation of chronic obstructive pulmonary disease, acute tracheobronchitis was noted with gradual resolution and improvement. 2. Severe debility. PLAN OF MANAGEMENT: No changes in plan of therapy at this time. The patient could be considered for home discharge tapering dose of prednisone and outpatient assessment of the current right lower lobe nodule. DAREK MCLEOD MD CM:PNTRANS 1143 0049 DAREK HAINES MD 10/25/17 0048 interface
--- NOTE | ~2017-10-19 | EKG ---
[place], [place] ELECTROCARDIOGRAM REPORT NAME: FRANCO PETTIT UNIT #: [id number] ROOM: [facility] DOCTOR: HARSHA HAINES MD,DAREK BIRTHDATE: [birth year] DOS: 10/19/2017 The test was done on 10/19/2017 at 7:18 p.m. Sinus tachycardia noted with maximal heart rate of 111 beats per minute. Left anterior fascicular block was noted. DAREK MCLEOD MD CM:EKGRPT:ELECTROCARDIOGRAM REPORT 1504 1527 DAREK HAINES MD
--- NOTE | ~2017-10-19 | PR ---
[place], [place] PROGRESS NOTE NAME: FRANCO PETTIT UNIT #: [id number] ROOM: 502 DOCTOR: HARSHA HAINES MD,DAREK BIRTHDATE: [birth year] DOS: 10/23/2017 SUBJECTIVE: The patient is noted comfortable at this time without any acute distress. The shortness of breath, wheezing, and other symptoms have been gradually improving. OBJECTIVE: VITAL SIGNS: Normal temperature, respiratory rate 20, heart rate 124-98, blood pressure 150/83. Pulse oxygen saturation on 2 liters nasal cannula noted 96% saturation. HEENT: No acute change. NECK: Supple. CARDIOVASCULAR: S1, S2 audible. LUNGS: Minimal wheezing. ABDOMEN: Soft, nontender. EXTREMITIES: Without any acute edema. LABORATORY DATA: Creatinine today was noted normal. CBC, WBC count 11.4, hemoglobin 10.9, normal platelet count. IMPRESSION: 1. Stable respiratory status, resolving acute exacerbation of chronic obstructive pulmonary disease, gradually. 2. Intermittent tachycardia, etiology was unclear. 3. Right lower lung mass with strong suspicion of lung cancer. PLAN OF MANAGEMENT: No changes from the pulmonary standpoint. From the pulmonary standpoint, the patient could be discharged home if necessary. Continue in the meantime other plan of therapy and care. Usual care, other supportive plan of therapy, and medical management. DAREK MCLEOD MD CM:PNTRANS [id number] DAREK HAINES MD 10/23/17 5987 interface
--- NOTE | ~2017-10-19 | PR ---
[place], [place] PROGRESS NOTE NAME: FRANCO PTETIT UNIT #: [id number] ROOM: 502 DOCTOR: HARSHA HAINES MD,DAREK BIRTHDATE: [birth year] DOS: 10/22/2017 PULMONARY PROGRESS NOTE SUBJECTIVE: The patient noted without any acute distress at the present time. She has been noting gradual reduction and improvement of respiratory symptom. The patient denies symptoms of chest pain or hemoptysis. The shortness of breath was resolving. OBJECTIVE: VITAL SIGNS: Showed normal temperature, respiratory rate 19, heart rate of 126, blood pressure 146/90-138/78. Pulse oxygen saturation on 2 liters 99% saturation. HEENT: Examination shows no acute change. NECK: Supple. CARDIOVASCULAR: S1, S2 audible. LUNGS: The patient was noted without any crackles. Mild to moderate expiratory wheezing noted, decreased from previously. ABDOMEN: Soft, nontender. IMPRESSION: 1. The patient with resolving acute exacerbation of chronic obstructive pulmonary disease with acute bronchitis gradually. 2. Mass lesion, right lower lobe, new finding. Strong suspicion of primary lung cancer. PLAN OF TREATMENT: Continue Solu-Medrol, bronchodilators and oxygen supplementation. Further change of treatment will be done based on the progression of the illness. DAREK MCLEOD MD CM:PNTRANS [id number] DAREK HAINES MD 10/23/17 0143 interface
--- NOTE | ~2017-10-19 | EKG ---
[employer], [place] ELECTROCARDIOGRAM REPORT NAME: FRANCO PETTIT UNIT #: [id number] ROOM: 502 DOCTOR: HARSHA HAINES MD,DAREK BIRTHDATE: [birth year] DOS: 10/22/2017 The electrocardiogram done on 10/22/2017 at 9:42 p.m. Sinus tachycardia noted. Heart rate of 133 beats per minute as a sinus tachycardia. AVL lead may not have a good connection. low voltage noted in that. The APC was also noted as well. DAREK MCLEOD MD CM:EKGRPT:ELECTROCARDIOGRAM REPORT [id number] DAREK HAINES MD
--- NOTE | ~2017-10-19 | PR ---
[place], [place] PROGRESS NOTE NAME: FRANCO PETTIT UNIT #: [id number] ROOM: 502 DOCTOR: HARSHA HAINES MD,DAREK BIRTHDATE: [birth year] DOS: 10/21/2017 SUBJECTIVE: She has been noted comfortable at this time, but still noted with significant cough. The cough has been noted without any sputum expectoration. Denies symptoms of chest pain. The patient underwent CTA of the chest with a short prep without any difficulty last night. It does not show any evidence of pulmonary embolism for this patient with the major pulmonary arteries. Incidental finding of 3.3 x 2.3 cm nodule/mass lesion noted in the right lower lobe in the medial subsegment. This was not visible clearly on the previous chest x-rays. The patient still noted symptoms of shortness of breath with cough. The cough has been noted intermittently with small amount of sputum expectoration. No fever or chills. Denies symptoms of nausea, vomiting, diarrhea, abdominal pain, hematemesis, melena, or hematochezia. The remaining systems were reviewed. They were noted all negative. PHYSICAL EXAMINATION: GENERAL: A 62-year-old female, currently sitting on the side of the bed, in no acute distress. VITAL SIGNS: Temperature noted as 99.2 to normal temperature, respiratory rate range between 18-20, heart rate of sinus tachycardia with range of 121-115, blood pressure 138/87-148/78. Pulse oxygen saturation on 2 liters cannula 97% saturation. HEENT: Examination shows head was atraumatic. Eyes nonicterus. NECK: Supple. CARDIOVASCULAR SYSTEM: S1, S2 audible. LUNGS: Shows diffuse reduction of the breath sounds noted in the lungs bilaterally. Moderate expiratory wheezing without any crackles. ABDOMEN: Soft, nontender. EXTREMITIES: Without any acute edema. MUSCULOSKELETAL: No deformities. SKIN: Visible skin, no lesions or rashes. CENTRAL NERVOUS SYSTEM: Intact without any focal deficits. LABORATORY DATA: CT of the chest personally reviewed show very severe diffuse emphysema changes with panlobular emphysema findings as well with centrilobular emphysema and incidental finding of 3.3 x 2.3 cm irregular spiculated mass. The patient's right lower lobe medial subsegment was clearly visible concerning for malignancy. Small bilateral pleural fluid, noted area of compression atelectasis. There was no evidence of acute pneumonia. Blood culture from 10/19/2017 showed no bacterial growths. IMPRESSION: 1. The patient with recurrence of acute exacerbation of chronic obstructive pulmonary disease with acute bronchitis with acute incidental finding of a mass lesion in the right lower lobe, suspected malignant process for the patient. Negative past history of lung cancer, left upper lobe with lobectomy a few years ago. 2. The patient with evidence of leukopenia noted as well on admission. 3. History of chronic nicotine dependence. [place], [place] PROGRESS NOTE NAME: FRANCO PETTIT UNIT #: [id number] ROOM: [facility] DOCTOR: HARSHA HAINES MD,DAREK BIRTHDATE: [birth year] PLAN OF MANAGEMENT: Continuation of the bronchodilators, oxygen supplementation. Continue DVT prophylaxis. There was no evidence of pulmonary embolism. It has been effectively excluded. Small pleural fluid need to be monitored. No intervention will be done. The mass lesion required a biopsy to be done for further assessment as well as the malignancy is very strongly suspected. All other supportive therapy, plan of management care plan. Usual treatment, all other supportive plan of care and therapies. Usual care. DAREK MCLEOD MD CM:PNTRANS [phone] DAREK HAINES MD 10/21/17 2250 interface
[~2017-10-19 19:00] MED LIST changes: +DOXYCYCLINE100 M3 PO; +FLUCONAZOLE100 MG PO
[2017-10-19 19:09] VITALS: BP 131/83
[2017-10-19 19:36] LABS: BASO % 0.5 % (0.0-1.0); EOS # 0.1 10*3/uL (0.0-0.4); EOS % 0.8 % (1.0-4.0); HEMATOCRIT 33.4 % (37.0-47.0); LYMPH # 2.4 10*3/uL (1.3-4.4); LYMPH % 37.4 % (27.0-41.0); MEAN CELL VOLUME 89.1 fl (81.0-99.0); MEAN CORPUSCULAR HGB 29.3 pg (27.0-31.0); MEAN CORPUSCULAR HGB CONC 32.9 g/dl (33.0-37.0); MEAN PLATELET VOLUME 9.2 fl (9.6-12.3); MONO # 0.4 10*3/uL (0.1-1.0); MONO % 6.2 % (3.0-9.0); NEUT # 3.4 10*3/uL (2.3-7.9); PLATELET COUNT AUTOMATED 185 10*3/uL (130-400); RED BLOOD COUNT 3.75 10*6/uL (4.10-5.10); RED CELL DISTRI WIDTH 14.5 % (0-14.5); WHITE BLOOD COUNT 6.3 10*3/uL (4.8-10.8)
[2017-10-19 19:49] LABS: ACT PARTIAL THROMBO TIME 21.5 SECONDS (20.8-31.5)
[2017-10-19 19:53] LABS: ABG BASE EXCESS 5.6 mmol/L (-2.0-2.0); ABG HCO3 29.7 mmol/l (22-26); ABG O2 SATURATION 99.1 % (95-97); ARTERIAL BLOOD GAS PCO2 42.5 mmHg (35-45); ARTERIAL BLOOD GAS PH 7.457 (7.35-7.45)
[2017-10-19 19:59] LABS: ALBUMIN 3.1 gm/dl (3.1-4.5); ALKALINE PHOSPHATASE 70 U/L (45-117); BUN 11 mg/dl (7-24); CHLORIDE 102 mmol/L (98-107); CREATININE 0.47 mg/dL (0.55-1.02); POTASSIUM 3.4 mmol/L (3.5-5.1); SGOT/AST 12 IU/L (3-35); SGPT/ALT 21 U/L (12-78); SODIUM 143 mmol/L (136-145); TOTAL PROTEIN 6.1 gm/dL (6.4-8.2)
[2017-10-19 20:00] LABS: TROPONIN I < 0.015 ng/ml (<0.045)
[2017-10-19 20:01] VITALS: BP 112/74
[2017-10-19 20:39] VITALS: BP 114/75
[2017-10-19 21:10] VITALS: BP 126/80
[2017-10-20] VITALS: BP 94/55
[2017-10-20 04:00] VITALS: BP 106/64
[2017-10-20 06:28] LABS: BASO % 0.3 % (0.0-1.0); HEMOGLOBIN 9.9 g/dl (12.0-16.0); LYMPH # 0.7 10*3/uL (1.3-4.4); LYMPH % 17.1 % (27.0-41.0); MEAN CORPUSCULAR HGB 29.4 pg (27.0-31.0); MEAN PLATELET VOLUME 9.4 fl (9.6-12.3); MONO # 0.1 10*3/uL (0.1-1.0); MONO % 1.3 % (3.0-9.0); NEUT # 3.1 10*3/uL (2.3-7.9); NEUT % 79.2 % (47.0-73.0); PLATELET COUNT AUTOMATED 165 10*3/uL (130-400); RED BLOOD COUNT 3.37 10*6/uL (4.10-5.10); RED CELL DISTRI WIDTH 14.3 % (0-14.5); WHITE BLOOD COUNT 3.9 10*3/uL (4.8-10.8)
[2017-10-20 06:57] LABS: BUN 10 mg/dl (7-24); CHLORIDE 106 mmol/L (98-107); CREATININE 0.43 mg/dL (0.55-1.02); PHOSPHOROUS 2.9 mg/dL (2.5-4.9); POTASSIUM 3.8 mmol/L (3.5-5.1); SODIUM 141 mmol/L (136-145)
[2017-10-20 07:01] LABS: ACT PARTIAL THROMBO TIME 22.3 SECONDS (20.8-31.5)
[2017-10-20 08:00] VITALS: BP 104/64
[2017-10-20 12:00] VITALS: BP 121/82
[2017-10-20 16:00] VITALS: BP 132/72
[2017-10-20 20:00] VITALS: BP 121/77
[2017-10-21] VITALS: BP 138/87
[2017-10-21 08:00] VITALS: BP 148/78
[2017-10-21 12:00] VITALS: BP 148/88
[2017-10-21 16:00] VITALS: BP 160/86
[2017-10-21 20:00] VITALS: BP 146/88
[2017-10-21 23:54] VITALS: BP 136/79
[2017-10-22 08:00] VITALS: BP 138/78
[2017-10-22 12:00] VITALS: BP 146/90
[2017-10-22 16:00] VITALS: BP 156/85
[2017-10-22 20:00] VITALS: BP 160/92
[2017-10-23] VITALS (7 sets, daily range): BP systolic 148–164; BP diastolic 83–98
[2017-10-23 06:17] LABS: HEMATOCRIT 32.5 % (37.0-47.0); HEMOGLOBIN 10.9 g/dl (12.0-16.0); MEAN CELL VOLUME 87.8 fl (81.0-99.0); MEAN CORPUSCULAR HGB 29.5 pg (27.0-31.0); MEAN CORPUSCULAR HGB CONC 33.5 g/dl (33.0-37.0); MEAN PLATELET VOLUME 9.2 fl (9.6-12.3); NUCLEATED RED BLOOD CELL 0.1 10*3/uL (0.0-0.0); NUCLEATED RED BLOOD CELL 0.9 % (0.0-0.0); PLATELET COUNT AUTOMATED 247 10*3/uL (130-400); RED CELL DISTRI WIDTH 14.1 % (0-14.5); WHITE BLOOD COUNT 11.4 10*3/uL (4.8-10.8)
[2017-10-23 06:45] LABS: CREATININE 0.56 mg/dL (0.55-1.02)
[2017-10-23 07:33] LABS: TOTAL CELLS COUNTED 100 #CELLS
[2017-10-23 07:34] LABS: PLATELET SUFFICIENCY NORMAL (NORMAL)
[2017-10-24] VITALS: BP 144/81
[2017-10-24 07:45] LABS: HEMATOCRIT 32.6 % (37.0-47.0); HEMOGLOBIN 10.8 g/dl (12.0-16.0); MEAN CELL VOLUME 87.6 fl (81.0-99.0); MEAN CORPUSCULAR HGB CONC 33.1 g/dl (33.0-37.0); MEAN PLATELET VOLUME 9.2 fl (9.6-12.3); NUCLEATED RED BLOOD CELL 0.1 10*3/uL (0.0-0.0); NUCLEATED RED BLOOD CELL 1.5 % (0.0-0.0); PLATELET COUNT AUTOMATED 235 10*3/uL (130-400); RED BLOOD COUNT 3.72 10*6/uL (4.10-5.10); WHITE BLOOD COUNT 9.2 10*3/uL (4.8-10.8)
[2017-10-24 08:00] VITALS: BP 130/83
[2017-10-24 08:02] LABS: ALBUMIN 3.1 gm/dl (3.1-4.5); ALKALINE PHOSPHATASE 55 U/L (45-117); BUN 22 mg/dl (7-24); CHLORIDE 96 mmol/L (98-107); CREATININE 0.44 mg/dL (0.55-1.02); POTASSIUM 3.4 mmol/L (3.5-5.1); SGOT/AST 19 IU/L (3-35); SGPT/ALT 25 U/L (12-78); SODIUM 138 mmol/L (136-145); TOTAL PROTEIN 5.9 gm/dL (6.4-8.2)
[2017-10-24 08:07] LABS: PLATELET SUFFICIENCY NORMAL (NORMAL); TOTAL CELLS COUNTED 100 #CELLS
[2017-10-24] MEDS ORDERED: PREDNISONE10 MG PO (09:44)
[2017-10-24] MEDS ORDERED: SERTRALINE HYD100 MG PO (09:44)
[2017-10-24] MEDS ORDERED: PANTOPRAZOLE SO40 MG PO (09:44)
[2017-10-24] MEDS ORDERED: LEVOFLOXACIN500 MG PO (09:45)
[2017-10-24] MEDS ORDERED: METOPROLOL TART50 M1 PO (10:43)
== END 2017-10-24 11:45 | disposition home or self-care (01) | DRG 871 ==
LOC: ED 19:00 → EDHOLD 20:30 → 5E 20:30
PROVIDERS: Emergency Medicine; Internal Medicine; Student in an Organized Health Care Education/Training Program
DX: A41.9 Sepsis, unspecified organism (principal); J18.9 Pneumonia, unspecified organism; J96.11 Chronic respiratory failure with hypoxia; E44.0 Moderate protein-calorie malnutrition; E87.2 Acidosis; C34.31 Malignant neoplasm of lower lobe, right bronchus or lung; R65.20 Severe sepsis without septic shock; E83.51 Hypocalcemia; J44.0 Chronic obstructive pulmonary disease with (acute) lower respiratory infection; J20.9 Acute bronchitis, unspecified; R73.9 Hyperglycemia, unspecified; F41.9 Anxiety disorder, unspecified; F32.9 Major depressive disorder, single episode, unspecified; J44.1 Chronic obstructive pulmonary disease with (acute) exacerbation; Z68.1 Body mass index [BMI] 19.9 or less, adult; Z72.0 Tobacco use; Z91.041 Radiographic dye allergy status; Z91.09 Other allergy status, other than to drugs and biological substances; Z79.899 Other long term (current) drug therapy

== ENCOUNTER 2018-06-27 12:02 | Inpatient (IN) | payer MEDICAID ==
[2018-06-27] VITALS (7 sets, daily range): BP systolic 64–109; BP diastolic 42–73
[~2018-06-27] VITALS: Ht 165.1 cm; Wt 45.0 kg
--- NOTE | ~2018-06-27 | PR ---
[place], [place] PROGRESS NOTE NAME: FRANCO PETTIT UNIT #: [id number] ROOM: [facility] DOCTOR: HARSHA HAINES MD,DAREK BIRTHDATE: [birth year] DOS: 07/03/2018 SUBJECTIVE: The patient has been noted liberated from mechanical ventilator, noted with some respiratory difficulty last night. The patient's hypoxia, required significant amount of pain. Medication administered most likely resulting compromise of hypoxia. The patient was started on the BiPAP. She has been noted awake and alert this morning. Denies symptoms of chest pain. Denies symptoms of fever or chills. Denies symptoms of headache or diplopia. Chest pain has been noted currently controlled. The pigtail catheter remains in place in the right pleural space, which has been noted with the drainage of the pleural fluid, small amount. The previous chest x-ray of the patient was not noting any significant changes compared with the other chest x-ray. REVIEW OF SYSTEMS: The review of systems; otherwise, noted as normal oral intake for the patient will resume, which has been tolerated by the patient very well. PHYSICAL EXAMINATION: VITAL SIGNS: The respiratory rate range between 14-17, heart rate of 94-110, blood pressure 160/98-136/80, respiratory rate of 14-17, normal temperature. HEENT: Examination shows head was atraumatic. Eyes nonicterus. NECK: Supple. CARDIOVASCULAR: S1, S2 is audible. LUNGS: The patient was noted without any wheezing or crackles. Breath sounds still noted diminished in the right lower lung. ABDOMEN: Soft, nontender. Bowel sounds present. EXTREMITIES: Without any acute edema. MUSCULOSKELETAL: Noted without any acute deformities. SKIN: Visible skin, no lesions or rashes. CENTRAL NERVOUS SYSTEM: The patient was noted nonfocal. LABORATORY DATA: CBC this morning, WBC count 17.6, hemoglobin normal, hematocrit normal, platelet count 235,000. CMP of the patient, BUN normal, creatinine normal. CO2 36. Phosphorus was decreased at 1.6. The albumin was normal. Culture of the pleural fluid was noted no bacterial growth, final results. Blood cultures showed no bacterial growths. Arterial blood gas for patient prior to liberation of mechanical ventilation, pH of 7.42, pCO2 49, pO2 79. Prealbumin level noted normal today at 29. IMPRESSION: 1. The patient with necrotizing pneumonia on consolidation, which has been treated with antibiotic. The patient remains afebrile and today was noted leukocytosis, but there was no fever. 2. The patient persistent acute respiratory failure, currently treated with oxygen supplementation 6 liters nasal cannula this morning after initial trial of the BiPAP last night for this patient may be related to the central hypoventilation and hypoxia for patient with narcotic medications administration. 3. The CT scan of chest will be ordered without contrast to further assess the progression of the current area of consolidation, mass-like lesion and necrosis. [place], [place] PROGRESS NOTE NAME: FRANCO PETTIT UNIT #: [id number] ROOM: [facility] DOCTOR: HARSHA HAINES MD,DAREK BIRTHDATE: [birth year] Based on that, further decision will be made for possible transfer to another facility for the patient as well. The pleural fluid drainage has been noted gradual with more than 400 mL pleural fluid, which are noted, serosanguineous still drained from the patient, from the right pleural catheter rather right pigtail catheter. 4. History of chronic obstructive pulmonary disease as well with acute exacerbation. 5. Nicotine abuse history as well. PLAN OF MANAGEMENT: Continuation of the bronchodilators, oxygen supplementation; however, decrease Solu-Medrol dose to 40 mg daily because of absence of wheezing today. Further changes in the medication will be done after the assessment. CT scan of the chest. Usual care. Phosphorus supplementation will be continued oral formulation. DAREK MCLEOD MD CM:PNTRANS [id number] DAREK HAINES MD 07/13/18 0922 interface
--- NOTE | ~2018-06-27 | PR ---
[place], [place] PROGRESS NOTE NAME: FRANCO PETTIT UNIT #: [id number] ROOM: [facility] DOCTOR: DAREK DUARTE MD BIRTHDATE: [birth year] DOS: 07/04/2018 SUBJECTIVE: The patient has been noted comfortable at this time. Shortness of breath at times for the patient is using the BiPAP as tolerated. She has not been noted symptoms of fever or chills. The coughing has been noted mild without any sputum expectoration. She has been noted intermittent wheezing. Denies symptoms of headache, nausea, vomiting, diarrhea, abdominal pain, or dysphagia. Denies any pain of the lower extremity. Remaining systems were reviewed. They were noted all negative. OBJECTIVE: VITAL SIGNS: Normal temperature, respiratory rate 19, heart rate of 120, mild sinus tachycardia at 112, blood pressure 103/70-96/63, pulse ox saturation was noted on 10 liters high flow nasal cannula 97% with the BiPAP 70% oxygen 97% saturation. HEENT: Head was atraumatic. Eyes nonicterus. NECK: Supple. CARDIOVASCULAR: S1, S2 audible. LUNGS: Decreased breath sounds on the right lower lung. Mild to moderate expiratory wheezing, no crackles. ABDOMEN: Flat, soft, nontender. EXTREMITIES: Without any edema. MUSCULOSKELETAL: Chronic muscle mass loss. CENTRAL NERVOUS SYSTEM: Intact. LABORATORY DATA: CBC today: WBC count of 15.3, hemoglobin normal, hematocrit normal, platelet count was normal. CMP of the patient this morning, BUN normal, creatinine was normal. Potassium 3.4. Albumin 2.2. The CT scan of the chest that was done without contrast was personally reviewed for the patient with various abnormality described was confirmed by the radiologist. The pigtail catheter noted in place with reduction of the pleural fluid. The pleural fluid still not noted completely resolved. The mass-like lesion consolidation present in the right middle and the right lower lobe for the patient. Thickening of the pleura for the patient was also noted in the patient's right mediastinal and hilar lymphadenopathy. Central lobular emphysema changes for the patient were also noted with scarring in the left upper lung with wedge resection of the left upper lobe. Possibility of osseous metastases was also noted in different parts of the bones. IMPRESSION: 1. The patient with current strong consideration of the lung cancer with metastatic lesion to the bone for the patient was considered with the pleural fluid related that was still noted hemorrhagic, end of drainage has been continued from the pigtail catheter. She has been noted 370 mL pleural fluid drainage. 2. The patient's chronic obstructive pulmonary disease with acute exacerbation noted with intermittent wheezing. 3. Leukocytosis, mostly related to steroids. There was no further evidence of pneumonia at this time. The patient will be completing treatment with [place], [place] PROGRESS NOTE NAME: FRANCO PETTIT UNIT #: [id number] ROOM: [facility] DOCTOR: HARSHA HAINES MD,DAREK BIRTHDATE: [birth year] antibiotics today. PLAN OF MANAGEMENT: The current findings were discussed with the patient in detail. She will be recommended to transfer to [facility] or other such facility for the diagnostic workup; however, the patient has noted a very high risk from mechanical ventilation that may require a long-term. Overall prognosis of this confirmed to be cancer was also noted very poor. In spite of that for the patient, she will be seen to be transferred to [facility] stated that she would like to know the diagnosis and then decide about the further medical management accordingly. The patient's arrangement and transfer will be made most likely tomorrow for this patient to [facility] on Friday. Steroid dose has been increased to 40 mg b.i.d. because of increased wheezing which are noted today. Continue the BiPAP, medical management of current acute on chronic severe hypoxic respiratory failure. DAREK MCLEOD MD CM:PNTRANS [id number] DAREK HAINES MD 07/13/18 0924 interface
--- NOTE | ~2018-06-27 | PROC NOTE ---
[place], [place] PROCEDURE NOTE NAME: FRANCO PETTIT UNIT #: [id number] ROOM: [facility] DOCTOR: DAREK DUARTE MD BIRTHDATE: [birth year] DOS: 06/29/2018 FIBEROPTIC BRONCHOSCOPY PREOPERATIVE DIAGNOSES: The patient with area of consolidation, infiltration, cavitation with endobronchial obstruction with respiratory failure, which were noted severe hypoxemic and exacerbation of chronic obstructive pulmonary disease concomitantly. POSTOPERATIVE DIAGNOSES: There was no evidence of endobronchial lesion noted. The bronchial opening was noted clear. The bronchial washing was taken from the right lobe endobronchial tree. COMPLICATIONS: None. ANESTHESIA: The procedure was done under general anesthesia after intubation. PROCEDURE DESCRIPTION: Informed consent obtained from the patient. She was brought to the OR. She was intubated. The anesthesia staff has successfully done without difficulty. Mechanical ventilation was continued. Video fiberoptic bronchoscopy advanced into the endotracheal lower part of the trachea. Vocal cord was not seen since the patient was intubated. The lower part of the trachea was noted only small amount of secretion that was suctioned out. Pati was noted sharp. The left upper, lingular lobe, and bronchi, all were noted patent. Right upper and middle lobe bronchial opening was also noted patent. Right lower lobe specifically does not show any bronchial obstruction. Bronchial washing was taken from the right lower lobe basilar subsegment without difficulty, sent for all the necessary cultures. Procedure was tolerated by the patient without any difficulty. Postoperative findings will be discussed with the patient's family member since the patient remains intubated once they are available. DAREK MCLEOD MD CM:PROCNOTE:PROCEDURE NOTE [id number] MARTINEZ DAREK HAINES MD
--- NOTE | ~2018-06-27 | PR ---
[place], [place] PROGRESS NOTE NAME: FRANCO PETTIT UNIT #: [id number] ROOM: [facility] DOCTOR: HARSHA HAINES MD,DAREK BIRTHDATE: [birth year] DOS: 06/30/2018 SUBJECTIVE: The patient was seen and examined on 06/27/2018. She was intubated, ingested and remains intubated at this time. Bronchoscopy was completed post-intubation under general anesthesia. She has been sedated with intravenous Diprivan. Tachypnea noted intermittently. She was continued on assist control, volume control, and mechanical ventilation as well. She still requires oxygen supplementation up to 50% oxygen supplementation and after the transfer in the intensive care unit, currently noted a 50% oxygen this morning. Arterial blood gas of this morning were reviewed. She remains afebrile this morning. There were no endobronchial obstructing lesion noted on the bronchoscopy. She has been tolerating the trophic feeding. There were no hemodynamic instability noted. She has been noted without any evidence of hypotension. Hypotension noted as the patient given Versed 5 mg, which has been treated with intravenous fluid bolus 500 mL of normal saline. REVIEW OF SYSTEMS: Could not be completed since the patient is intubated. OBJECTIVE: VITAL SIGNS: For the patient, which have been recorded shows temperature normal, respiratory rate 17-13, heart rate of 93-92, blood pressure of 74-50-106/74. Pulse oxygen saturation as 98% saturation, 50% oxygen supplementation. HEENT: The patient is orally intubated. Orogastric tube in place. NECK: Supple. Head was atraumatic. CARDIOVASCULAR: S1, S2 is audible. LUNGS: The patient was noted with moderate decreased breath sound, diffuse expiratory wheezing in the lungs noted today bilaterally. ABDOMEN: Soft, nontender, bowel sounds present. EXTREMITIES: The patient noted loss of muscle mass. MUSCULOSKELETAL: No acute deformities. SKIN: Visible skin lesions or rashes. LABORATORY DATA: The patient's arterial blood gas that was done yesterday afternoon in Intensive Care Unit, pH of 7.39, pCO2 of 46, pO2 of 80%-55% oxygen. The vancomycin trough level was 6.4. CMP this morning, glucose 122, BUN normal, creatinine was normal. Potassium 2.9, sodium 142. Phosphorus was 1.9. CBC, WBC count 10.9, hemoglobin 9.6, hematocrit 31.8, platelet count 209,000. The cultures of the bronchial washing noted as normal alyx. The Gram-stain was noted as moderate white blood cells, no organisms seen. Arterial blood gas this morning 55% oxygen, pH 7.39, pCO2 of 48, pO2 of 89.3. Chest x-ray that was done this morning was reviewed, shows endotracheal tube noted in appropriate position. Evidence of loss of volume noted with possible interval development of pleural fluid on the right side as well. Endotracheal tube was noted about 3 cm above the maurilio level. Left lung appeared to be hyperinflated. Pleural fluid might seem to be partially increased when compared with a chest x-ray of yesterday. CBC: WBC count today 10.9, hemoglobin 9.6, hematocrit 31.8, platelet count is normal. Vancomycin trough level yesterday was noted at 6.4. IMPRESSION: [place], [place] PROGRESS NOTE NAME: FRANCO PETTIT UNIT #: [id number] ROOM: [facility] DOCTOR: TIP DUARTE MDM BIRTHDATE: [birth year] 1. The patient with acute pneumonia associated pleural fluid, which was noted necrotizing and currently treated with vancomycin and IV Zosyn with continuous infusion. 2. Severe protein-calorie malnutrition with refeeding syndrome with hypokalemia and hypophosphatemia. 3. The patient with a history of lung cancer previously. The patient's left upper wedge resection for the malignancy. 4. Chronic protein-calorie malnutrition. PLAN OF MANAGEMENT: Continue Solu-Medrol and bronchodilators. Assess the patient with the ultrasound tomorrow for the pleural fluid. If necessary, consider chest tube insertion with a large fluid noted. Mechanical ventilator changes have been made to optimize the ventilation for this patient. Repeat arterial blood gas to be done in about 2 hours later. The supplementation of the phosphorus and the potassium will be done aggressively. Continue low trophic feeding at this time. Continue DVT prophylaxis, bronchodilators, corticosteroids and other ventilator bundle management. Usual care, other supportive therapy, plan of management. Monitor culture results. Optimize the vancomycin. The patient to keep at the trough level and adequate dosing. The Zosyn will be changed to the continuous extended infusion therapy for the patient as well. Other supportive therapy, plan of management, care plan and treatment. Other additional treatment changes will be recommended based on progression of illness. ADDENDUM Total time in pulmonary critical care evaluation and management for the patient on today's assessment is 40 minutes. DAREK MCLEOD MD CM:PNTRANS [id number] JUAN HAINES MD 07/01/18 0912 SHILPI BOTELLO.MARTINEZ
--- NOTE | ~2018-06-27 | PR ---
[place], [place] PROGRESS NOTE NAME: FRANCO PETTIT UNIT #: [id number] ROOM: [facility] DOCTOR: HARSHA HAINES MD,DAREK BIRTHDATE: [birth year] DOS: 06/29/2018 SUBJECTIVE: The patient remains in the intensive care unit and noted with hypoxia, symptoms of shortness of breath. Did not tolerate the BiPAP. She would not be requiring use of the BiPAP this morning. Oxygen supplementation. Continue the high flow oxygen Venturi mask system. She has been currently noted 100% nonrebreather mask this morning as she was seen in the OR for the bronchoscopy. She does have a cough. There was no sputum expectoration or symptoms of hemoptysis, fever or chills. There were no symptoms of abdominal pain, nausea, vomiting reported by the patient. She is n.p.o. past midnight for bronchoscopy. There were symptoms of diarrhea or any lower extremity pain. Images reviewed. They were noted all negative. PHYSICAL EXAMINATION: VITAL SIGNS: Normal temperature to 99 degree Fahrenheit, respiratory rate of 14-18, heart rate of 94-101, blood pressure 113/50-120/81. Pulse oxygen saturation on Optiflow of oxygen 60 liters was noted at this time with the BiPAP 93% saturation. HEAD, EYES, EARS, NOSE, AND THROAT: Examination shows head was atraumatic. Eyes nonicterus. NECK: Supple. CARDIOVASCULAR SYSTEM: S1, S2 audible. LUNGS: Noted moderate decreased breath sounds bilaterally. Decreased breath sounds in the right lower lung. ABDOMEN: Soft, nontender. Bowel sounds present. EXTREMITIES: No edema. IMPRESSION: 1. The patient who has been currently noted with acute exacerbation of chronic obstructive pulmonary disease. 2. Right lower lobe area of consolidation, rule out any mass lesion endobronchial obstruction. 3. Cavitary pneumonia. 4. Past history of lung cancer. The patient needs the partial left upper lung resection with wedge resection for the non-small cell lung cancer in 2009, known by history. 5. History of nicotine dependence. PLAN OF MANAGEMENT: The procedure will be done after the intubation and mechanical ventilation. Depends on the finding of the bronchoscopy. Additional treatment changes will be ordered accordingly. Continue antibiotics, bronchodilators. Usual care, other supportive therapy, plan of management treatment. Supportive care. Nutrition support. [place], [place] PROGRESS NOTE NAME: FRANCO PETTIT UNIT #: [id number] ROOM: [facility] DOCTOR: DAREK DUARTE MD BIRTHDATE: [birth year] DAREK MCLEOD MD CM:PNTRANS [phone] DAREK HAINES MD 07/13/18 0921 interface
--- NOTE | ~2018-06-27 | CON ---
[place], [place] REPORT OF CONSULTATION NAME: FRANCO PETTIT UNIT #: [id number] ROOM: [facility] DOCTOR: DAREK DUARTE MD BIRTHDATE: [birth year] DOS: 06/28/2018 PULMONARY CONSULTATION, EVALUATION, AND MANAGEMENT CONSULTATION REQUESTED BY: Hospitalist services. REASON FOR CONSULTATION: To assess the patient for abnormal CT scan chest findings. HISTORY OF PRESENT ILLNESS: This is a 62-year-old white female patient with history of past lung cancer with surgical intervention in the past. She has been noted with history of chronic nicotine dependence with severe COPD. She has been admitted to the hospital several times previously in the past few months for acute exacerbation of COPD. She had been admitted to the hospital in October 2017 the last time and was discharged home. She presented to the Emergency Room in the hospital on 06/27/2018. The patient reported symptoms of having increased cough with moderate amount of purulent secretion production. She was also noted with significant symptoms of shortness of breath. The patient was staying at a nursing facility as well previously. She has been noted with symptoms of progressive hypoxia. The chest x-ray that was done in the nursing facility reported with findings of acute pneumonia. She has been hospitalized for further medical management. During the hospitalization, the patient underwent CT of the chest that was noted with evidence of right lower lobe pneumonia and other findings which will be dictated later. She has been noted with significant severe hypoxia and hypoxemia. She was started on BiPAP, which was not tolerated by the patient. Currently, the patient is getting high flow of Optiflow oxygen supplementation with 50% oxygen supplementation and was saturating about 90-93% saturation in the Intensive Care Unit. She does not report any symptoms of hemoptysis. Shortness of breath and wheezing have been reported, which were noted partially decreased since hospitalization in the last 24 hours. REVIEW OF SYSTEMS: CONSTITUTIONAL: Fatigue and tiredness noted without any symptoms of fever or chills. EYES: Denies any burning, redness or tenderness. EARS, NOSE, THROAT SYMPTOMS: Denies sore throat, hoarseness, otalgia, postnasal drainage or epistaxis. CARDIOVASCULAR: Denies anginal pain, edema or pain of the lower extremities. GASTROINTESTINAL: Denies dysphagia, nausea, vomiting, diarrhea, abdominal pain, hematemesis, or melena. GENITOURINARY: No dysuria, suprapubic pain, or hematuria. MUSCULOSKELETAL: No acute joint pain, redness or tenderness. SKIN: Denies any lesions or rashes. CENTRAL NERVOUS SYSTEM: Denies dizziness, headache, diplopia or seizures. Remaining systems were reviewed, they were noted all negative. PAST MEDICAL HISTORY: 1. Noted with end-stage COPD. [place], [place] REPORT OF CONSULTATION NAME: FRANCO PETTIT UNIT #: [id number] ROOM: [facility] DOCTOR: HARSHA HAINES MD,[facility] BIRTHDATE: [birth year] 2. Chronic hypoxic respiratory failure. 3. Past history of non-small cell lung cancer with surgical resection of the left upper lobe. The surgery was done in 2009. 4. History of nicotine dependence. 5. Chronic low BMI. 6. Past history of MRSA pneumonia. PAST SURGICAL HISTORY: 1. Left upper lobe lobectomy in 2009 for non-small cell lung cancer. She did not require any further treatment after that. 2. Previous bronchoscopies. 3. Biopsy of the left breast that was benign. SOCIAL HISTORY: The patient is , lives at home. Denies history of alcohol use or illicit drug use. Smoking was noted since teenager about 3 packs of cigarettes per day, currently smoking a few cigarettes a day. There is no history of alcohol use or illicit drug use. 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 FAMILY HISTORY: The patient's father at 74 years, unknown medical illnesses. Mother at the age 7575 years old from complication related to acute myocardial infarction. CURRENT MEDICATIONS ADMINISTERED: Noted use of sertraline, Remeron, Aricept, Carafate, Mucinex, multivitamin, Claritin, Flonase, Lovenox for DVT prophylaxis, Protonix, Solu-Medrol 40 mg q. 8 hours, DuoNeb q. 4 hours, Levaquin, vancomycin, and IV Zosyn. DRUG ALLERGY HISTORY: The patient is noted as allergies to: 1. IODINE. 2. MERCURY. PHYSICAL EXAMINATION: GENERAL: A 62-year-old female, currently noted to be awake and alert, on oxygen supplementation with Optiflow on 50% oxygen supplementation. VITAL SIGNS: Height of 5 feet 5 inches, weight of 92 pounds. The patient's BMI 15.3. Vital signs otherwise noted normal temperature since admission. The respiratory rate ranges between 18-28, heart rate of 120-114 beats per minute, sinus tachycardia. Blood pressure of 64/42 noted on admission, currently noted 107/62. Pulse oxygen saturation noted as 94% saturation. HEENT: Loss of muscle mastication. Head was atraumatic, eyes nonicterus. CARDIOVASCULAR SYSTEM: S1 and S2 audible. LUNGS: Noted general reduction of the breath sounds with absent breath sounds in the right lower portion of the lung posteriorly. ABDOMEN: Flat, soft, nontender. EXTREMITIES: The patient was noted without any acute edema. MUSCULOSKELETAL: Noted without any acute deformities. CENTRAL NERVOUS SYSTEM: Cranial nerves 2-12 are intact. Loss of muscle mass. VISIBLE SKIN: No lesions or rashes. [place], [place] REPORT OF CONSULTATION NAME: FRANCO PETTIT UNIT #: [id number] ROOM: [facility] DOCTOR: TIP DUARTE MDM BIRTHDATE: [birth year] LABORATORY AND DIAGNOSTIC DATA: The patient's arterial blood gas on 5 liters nasal cannula in the Emergency Room, pH of 7.47, pCO2 40, pO2 54.8. In the Emergency Room on 06/27/2018, WBC count of 16.7, hemoglobin 11.9, platelet count was normal. Lactic acid 1.8 noted yesterday. PT and PTT noted normal. Influenza A and B nasal washing antigen yesterday was negative. CBC of this morning, WBC count normal, hemoglobin 10.6, platelet count normal. BMP noted as normal BUN and creatinine, sodium 146. Chest x-ray that was done showed remarkable finding of opacification in the right lower half of the lung with possibility of consolidation. Pleural fluid was also suspected as small possibly in amount. CT scan of the chest does not show any pulmonary embolism in the major pulmonary arterial branches. Small loculated right pleural fluid was noted with possibility of cavitary pneumonia, associated mass lesion in the right lower lobe cannot be completely excluded. Changes were noted with scarring in the left upper lobe related to the past surgery. Tree-in-bud interstitial lung disease opacities noted in the left lower lobe as well. IMPRESSION: 1. The patient has been currently admitted to the hospital with possibility of acute pneumonia with underlying mass lesion to be considered and excluded with cavitary pneumonia. Differentials would be considered gram-negative infection, anaerobes, and MRSA. 2. The patient with severe ghsjd-ji-kloppsy hypoxic respiratory failure. 3. Acute exacerbation of chronic obstructive pulmonary disease. 4. History of recurrent nicotine abuse. 5. Past history of lung cancer with left upper lobectomy 8 years ago. 6. 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 7. Sinus tachycardia related to current acute pulmonary problems. PLAN OF MANAGEMENT: The patient will be continued on current antibiotic for the coverage of suspected MRSA infection, gram-negative rods, and anaerobic infections. Sputum for Gram stain and culture for the patient will be obtained. Urine for legionella antigen will be also ordered because of his current severe pneumonia. Urine strep antigen has been ordered as well. Bronchodilators will be continued. Continue oxygen supplementation to maintain pulse oxygen 92% or greater. Fiberoptic bronchoscopy is planned for this patient to assess the patient for any endobronchial lesion; if noted, biopsy will be done. Risk and benefits of the procedure were discussed with the patient. Other plan of therapy and care plan of the patient to be continued as tolerated. Usual care and all other supportive plan of management and treatments. Thanks for allowing me to participate in the care of this patient. [place], [place] REPORT OF CONSULTATION NAME: FRANCO PETTIT UNIT #: [id number] ROOM: [facility] DOCTOR: DAREK DUARTE MD BIRTHDATE: [birth year] DAREK MCLEOD MD CM:CONSTR:REPORT OF CONSULTATION 1700 07/13/18 0919 interface
--- NOTE | ~2018-06-27 | PR ---
[place], [place] PROGRESS NOTE NAME: FRANCO PETTIT UNIT #: [id number] ROOM: [facility] DOCTOR: DAREK DUARTE MD BIRTHDATE: [birth year] DOS: 07/01/2018 PULMONARY/CRITICAL CARE EVALUATION AND MANAGEMENT SUBJECTIVE: The patient is seen and examined on 07/01/2018 for pulmonary assessment for critical care. The patient remains in the hospital on 40% oxygen which was decreased yesterday, remains on mechanical ventilator. Continued on intravenous antibiotics as well. Chest x-ray findings were reviewed and remained the same with pleural fluid associated with area of consolidation and opacification of the right lower half of the chest. She has not been noted any hemodynamic instability. After the fluid bolus which was given yesterday, hypotension resolved. She did not require any use of vasopressor therapy in the last 24 hours and maintaining a good blood pressure as the patient was given additional normal saline for the last 24 hours. This morning, the patient has been noted awake with low dose of sedation, follows vocal commands. She has been supplemented for abnormal electrolytes with low phosphorus and potassium. Antibiotics were also continued. OBJECTIVE: VITAL SIGNS: Which were recorded showed temperature remains normal, respiratory rate of 12-18, heart rate 111-84, blood pressure 124/75 to 131/74. The lowest blood pressure is noted as 74/50. Intake is 1980 mL, output 1225 mL. Pulse oxygen saturation on 40% oxygen is 93-96% saturation recorded. HEENT: Head was atraumatic. The patient remained intubated. Orogastric tube is in place. NECK: Supple. CARDIOVASCULAR: S1, S2 audible. LUNGS: Noted with reduction of wheezing in the lungs. Breath sounds are noted diminished bilaterally. Absent breath sounds are noted in the right lower portion of the chest. ABDOMEN: Soft, nontender. Bowel sounds present. EXTREMITIES: Noted without any acute edema. VISIBLE SKIN: No lesions or rashes. CENTRAL NERVOUS SYSTEM: Noted without any gross focal neurologic deficit. MUSCULOSKELETAL: Without any acute deformities. LABORATORY DATA: Reviewed for today's assessment. Vancomycin trough level yesterday noted as therapeutic at 16.4. CBC of 07/01/2018: WBC count 7.9, hemoglobin 9.3, hematocrit 31.1, platelet count 181,000. CMP of 07/01/2018: Glucose 126, BUN normal, creatinine normal, potassium 2.8, chloride of 109, phosphorus 1.5. Albumin is 7.1. The arterial blood gas on 40% oxygen assist control, pH is 7.43, pCO2 of 46, pO2 of 79. RADIOLOGY: Chest x-ray was noted as opacification of the right lower portion of the lung, endotracheal tube in proper position. MICROBIOLOGY: Culture of the bronchial washing shows normal alyx. IMPRESSION: 1. Acute necrotizing pneumonia was considered in the right lower lobe from [place], [place] PROGRESS NOTE NAME: FRANCO PETTIT UNIT #: [id number] ROOM: [facility] DOCTOR: HARSHA HAINES MD,DAREK BIRTHDATE: [birth year] anaerobic organism, Gram-negative infection. There was no evidence of methicillin-resistant Staphylococcus aureus . 2. The patient has a past history of lung cancer in 2009, treated with wedge resection of the left upper lobe. 3. Acute exacerbation of chronic obstructive pulmonary disease. 4. Severe protein-calorie malnutrition. 5. Refeeding syndrome in a patient with electrolyte imbalance. 6. Development of complicated pleural fluid noted, related to current acute pneumonia. PLAN OF TREATMENT: Ultrasound of the chest was performed at bedside. Confirmation of partial loculation of the pleural fluid was noted with an area of consolidation in the right lower lobe. The patient's antibiotic will be deescalated based on the current culture results. Vancomycin will be discontinued. Levaquin will be discontinued. Continue the infusion of Zosyn, will be started with anaerobic coverage. Bronchodilators will be administered. The dose of Solu-Medrol will be decreased as the wheezing has been noted decreased. Continue the supplementation of the electrolytes as well with oral supplementation of potassium and phosphorus. Continue trophic feeding. Ventilator bundle management. DVT prophylaxis will be continued. All other additional treatment changes will be done based on the progression of the illness. Total time for pulmonary/critical evaluation and management was 45 minutes. DAREK MCLEOD MD CM:PNTRANS [id number] DAREK HAINES MD 07/01/18 1236 interface
--- NOTE | ~2018-06-27 | EKG ---
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
--- NOTE | ~2018-06-27 | EKG ---
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
--- NOTE | ~2018-06-27 | PR ---
[place], [place] PROGRESS NOTE NAME: FRANCO PETTIT UNIT #: [id number] ROOM: [facility] DOCTOR: HARSHA HAINES MD,DAREK BIRTHDATE: [birth year] DOS: 07/05/2018 SUBJECTIVE: The patient was still noted symptoms of shortness of breath, which has been noted significant with minimal exertion. Cough has been noted only minimal. There were no symptoms of chest pain, fever or chills. The patient was using BiPAP intermittently with intermittent use of the oxygen supplementation. She has not been noted symptoms of fever or chills at present time. The appetite noted fair. The patient has not been noted any symptoms of hemoptysis. OBJECTIVE: VITAL SIGNS: Remaining systems reviewed were noted as negative. Vital signs patient which has been recorded showed normal temperature, respiratory rate 16, heart rate 105, blood pressure 107/69. HEAD, EYES, EARS, NOSE, AND THROAT: Shows head was atraumatic. Eyes nonicterus. NECK: Supple. CARDIOVASCULAR SYSTEM: S1, S2 is audible. LUNGS: Decreased breath sounds on the right side with expiratory wheezing noted somewhat decreased from yesterday. ABDOMEN: Soft, nontender, bowel sounds present. EXTREMITIES: Noted with loss of muscle mass, which is chronic. VISIBLE SKIN: No lesions or rashes except some area of bruising, medications induced. CENTRAL NERVOUS SYSTEM: General weakness, but overall intact. LABORATORY DATA: BMP of this morning, normal BUN and creatinine were normal, glucose 131, potassium 3.4, CO2 of 38. CBC on 07/05/2018 white count 11.1, hemoglobin 11.1, platelet count 214,000. IMPRESSION: 1. The patient with a loculated pleural fluid with mass-like lesion with cavitation in the right lower lobe. The patient's differential for the malignant process, pneumonia has been considered less likely current workup. She was still draining hemorrhagic pleural fluid from the chest tube for the total drainage noted 200 mL. 2. Severe cachexia, which is chronic. 3. Persistent acute on chronic hypoxic respiratory failure. PLAN OF MANAGEMENT: The patient will be transferred to [facility] for further appropriate workup malignant process. She would be considered high risk for any surgical procedure, which will be done. The patient does understand that. The assessment and ongoing problem has been discussed with one of the patient's son, Luis Armando on the telephone as well in detail. She was made aware of the patient's current ongoing medical illness with current overall prognosis, which appeared to be poor. [place], [place] PROGRESS NOTE NAME: FRANCO PETTIT UNIT #: [id number] ROOM: [facility] DOCTOR: DAREK DUARTE MD BIRTHDATE: [birth year] DAREK MCLEOD MD CM:PNLUISA [id number] DAREK HAINES MD 07/05/181853 interface
--- NOTE | ~2018-06-27 | PR ---
[place], [place] PROGRESS NOTE NAME: FRANCO PETTIT UNIT #: [id number] ROOM: [facility] DOCTOR: DAREK DUARTE MD BIRTHDATE: [birth year] DOS: 07/02/2018 PULMONARY CRITICAL CARE EVALUATION AND MANAGEMENT SUBJECTIVE: The patient was seen and examined on 07/02/2018. Has a chest tube inserted yesterday for drainage of the right pleural fluid. The pleural fluid has been noted continued to drain about 750 mL of pleural fluid noted with moderate serosanguineous appearance of the patient as well. The patient tolerated the procedure very well, noted awake this morning. Receiving the intravenous Diprivan. Following vocal commands. She has been noted without any hemodynamic instability at the present time. She appeared to be quite comfortable at the present time as well. Feeding was continued. Electrolyte correction for the patient has been noted in the last 24 hours for hypokalemia and hypophosphatemia. OBJECTIVE: VITAL SIGNS: Temperature of the patient remains normal, respiratory rate of 12-11, heart rate of 93-85, blood pressure 137/83 to 146/90. Pulse ox saturation 40% oxygen 97% saturation. HEENT: No acute change. NECK: Supple. CARDIOVASCULAR: S1, S2 audible. LUNGS: Noted with decreased breath sounds noted in the right lung base. ABDOMEN: Soft, nontender, bowel sounds present. EXTREMITIES: No acute edema. LABORATORY DATA: The arterial blood gas pH of 7.40, pCO2 of 48, pO2 of 88, and 40% oxygen. The oxygen was decreased yesterday to 40%. CBC: WBC count 8.4, hemoglobin 9.7, hematocrit 32.0, platelet count 192,000. Analysis of pleural fluid for the patient, pH of 7.44, cell count differential for the patient total cells of 282, 54,000 RBCs with 39% neutrophils, and 9% lymphocytes. The LDH of 120, total protein 1.3, and LDH is 248. Cholesterol less than 50, just based on the criteria of the LDH would be considered. An exudative effusion is likely with a transudative effusion to be considered more likely than an exudative effusion. Gram stain of the pleural fluid of the patient many white blood cells, no microorganisms seen. No bacterial growth initially. The chest x-ray that was done this morning shows there was still area of consolidation and infiltration noted in the lungs. Chest tube remains in place for this patient as pigtail catheter in the lower portion of the right hemithorax. IMPRESSION: 1. The patient with large area of cavitary infiltration was noted most likely pneumonia. Malignancy cannot be completely excluded at least there were no endobronchial lesions noted with the bronchoscopy. 2. The patient with acute on chronic hypoxic respiratory failure. 3. Acute pneumonia. 4. Rule out malignancy in the right lower lobe. Cytology of the pleural fluid was pending. 5. Improvement in refeeding syndrome for the patient with correction of the electrolytes. [place], [place] PROGRESS NOTE NAME: FRANCO PETTIT UNIT #: [id number] ROOM: [facility] DOCTOR: HARSHA HAINES MD,DAREK BIRTHDATE: [birth year] 6. Anemia of chronic disease. 7. Chronic nicotine use. 8. Past history of tobacco use. PLAN OF MANAGEMENT: The patient will be started weaning from mechanical ventilator with starting CPAP of 7, pressure support of 12 for the next 2 hours if tolerated. Proceed to the arterial blood gases with the clinical stability. The patient would be considered possible liberation of mechanical ventilation. BiPAP may be useful for post-extubation if necessary. Otherwise, the oxygen supplementation to be continued. Other supportive therapy, plan of management, care plan. The patient's previous progress will be continued. Obtain prealbumin level of the patient tomorrow as well. The feeding will be continued with the same feeding for the next 24 hours or infusion could be started. The patient does get liberated from mechanical ventilator. Gradual increase in the calories. Supportive therapy, plan of management and care plan of treatment and usual therapies. Total time for pulmonary critical care evaluation and management for the patient was 34 minutes. DAREK MCLEOD MD CM:SUKHDEEP [id number] DAREK HAINES MD 07/13/18 0922 interface
[~2018-06-27 12:02] MED LIST changes: +METOPROLOL TART50 M1 PO; +PANTOPRAZOLE SO40 MG PO; +SERTRALINE HYD100 MG PO
[2018-06-27 12:31] LABS: ABG BASE EXCESS 5.7 mmol/L (-2.0-2.0); ABG HCO3 29.3 mmol/l (22-26); ABG O2 SATURATION 89.2 % (95-97); ARTERIAL BLOOD GAS PCO2 40.3 mmHg (35-45); ARTERIAL BLOOD GAS PH 7.475 (7.35-7.45); ARTERIAL BLOOD GAS PO2 54.8 mmHg (80-90)
[2018-06-27 12:46] LABS: BASO % 0.2 % (0.0-1.0); EOS # 0.1 10*3/uL (0.0-0.4); EOS % 0.6 % (1.0-4.0); HEMATOCRIT 38.2 % (37.0-47.0); HEMOGLOBIN 11.9 g/dl (12.0-16.0); LYMPH # 1.8 10*3/uL (1.3-4.4); LYMPH % 10.9 % (27.0-41.0); MEAN CELL VOLUME 79.6 fl (81.0-99.0); MEAN CORPUSCULAR HGB 24.8 pg (27.0-31.0); MEAN CORPUSCULAR HGB CONC 31.2 g/dl (33.0-37.0); MEAN PLATELET VOLUME 8.7 fl (9.6-12.3); MONO # 0.7 10*3/uL (0.1-1.0); MONO % 4.4 % (3.0-9.0); NEUT # 13.8 10*3/uL (2.3-7.9); NEUT % 83.1 % (47.0-73.0); PLATELET COUNT AUTOMATED 267 10*3/uL (130-400); RED CELL DISTRI WIDTH 16.5 % (0-14.5); WHITE BLOOD COUNT 16.7 10*3/uL (4.8-10.8)
[2018-06-27 12:55] LABS: ACT PARTIAL THROMBO TIME 20.2 SECONDS (20.8-31.5)
[2018-06-27 13:04] LABS: ALKALINE PHOSPHATASE 65 U/L (45-117); BUN 17 mg/dl (7-24); CHLORIDE 103 mmol/L (98-107); CREATININE 0.31 mg/dL (0.55-1.02); POTASSIUM 3.3 mmol/L (3.5-5.1); SGOT/AST 8 IU/L (3-35); SGPT/ALT 12 U/L (12-78); SODIUM 141 mmol/L (136-145); TOTAL PROTEIN 5.3 gm/dL (6.4-8.2)
[2018-06-27 13:06] LABS: TROPONIN I 0.074 ng/ml (<0.045)
[2018-06-27] MEDS ORDERED: TYLENOL325 M3 PO (15:14)
[2018-06-27] MEDS ORDERED: ARICEPT5 M1 PO (15:16)
[2018-06-27] MEDS ORDERED: MONODOX100 MG PO (15:17)
[2018-06-27] MEDS ORDERED: Ipratropium Brom3 ML INH ×2 (15:19)
[2018-06-27] MEDS ORDERED: VITAMIN D50000 UNIT PO (15:20)
[2018-06-27] MEDS ORDERED: 24 HOUR ALLER15.8 ML NAS (15:21)
[2018-06-27] MEDS ORDERED: CLARITIN10 MG PO (15:21)
[2018-06-27] MEDS ORDERED: LOPRESSOR25 MG PO (15:23)
[2018-06-27] MEDS ORDERED: REMERON15 M2 PO (15:23)
[2018-06-27] MEDS ORDERED: MULTIVITAMINS1 EAC5 PO (15:24)
[2018-06-27] MEDS ORDERED: OMEPRAZOLE20 M3 PO (15:25)
[2018-06-27] MEDS ORDERED: PREDNISONE10 MG PO (15:27)
[2018-06-27] MEDS ORDERED: ACIDOPHILUS1 EAC4 PO (15:29)
[2018-06-27] MEDS ORDERED: SENNA8.6 MG PO (15:29)
[2018-06-27] MEDS ORDERED: ZOLOFT100 MG PO (15:31)
[2018-06-27] MEDS ORDERED: Carafate1 GM PO (15:32)
[2018-06-27] MEDS ORDERED: TRAMADOL HCL50 MG PO (15:34)
[2018-06-27] MEDS ORDERED: VISTARIL25 MG PO (15:39)
[2018-06-28] VITALS: BP 150/90
[2018-06-28 04:00] VITALS: BP 144/84
[2018-06-28 05:40] LABS: BUN 16 mg/dl (7-24); CHLORIDE 109 mmol/L (98-107); CREATININE 0.28 mg/dL (0.55-1.02); POTASSIUM 3.5 mmol/L (3.5-5.1); SODIUM 146 mmol/L (136-145)
[2018-06-28 05:44] LABS: PHOSPHOROUS 2.7 mg/dL (2.5-4.9); PREALBUMIN 15 mg/dl (20-40)
[2018-06-28 05:50] LABS: THYROID STIM HORMONE (HS) 0.521 uIU/ml (0.358-4.75)
[2018-06-28 05:54] LABS: BASO % 0.2 % (0.0-1.0); HEMATOCRIT 35.9 % (37.0-47.0); HEMOGLOBIN 10.6 g/dl (12.0-16.0); LYMPH # 1.1 10*3/uL (1.3-4.4); LYMPH % 12.6 % (27.0-41.0); MEAN CELL VOLUME 82.2 fl (81.0-99.0); MEAN CORPUSCULAR HGB 24.3 pg (27.0-31.0); MEAN CORPUSCULAR HGB CONC 29.5 g/dl (33.0-37.0); MEAN PLATELET VOLUME 9.1 fl (9.6-12.3); MONO # 0.4 10*3/uL (0.1-1.0); NEUT % 80.5 % (47.0-73.0); PLATELET COUNT AUTOMATED 248 10*3/uL (130-400); RED BLOOD COUNT 4.37 10*6/uL (4.10-5.10); RED CELL DISTRI WIDTH 16.4 % (0-14.5); WHITE BLOOD COUNT 8.7 10*3/uL (4.8-10.8)
[2018-06-28 07:08] LABS: VITAMIN D, 25-HYDROXY 79.2 ng/mL (30-100)
[2018-06-28 07:50] VITALS: BP 144/86
[2018-06-28 11:26] VITALS: BP 107/62
[2018-06-28 16:00] VITALS: BP 117/64
[2018-06-28 20:00] VITALS: BP 115/69
[2018-06-29] VITALS (10 sets, daily range): BP systolic 90–169; BP diastolic 52–98
[2018-06-29 05:55] LABS: ALKALINE PHOSPHATASE 58 U/L (45-117); BUN 19 mg/dl (7-24); CHLORIDE 108 mmol/L (98-107); PHOSPHOROUS 1.6 mg/dL (2.5-4.9); POTASSIUM 3.3 mmol/L (3.5-5.1); SGOT/AST 13 IU/L (3-35); SGPT/ALT 12 U/L (12-78); SODIUM 143 mmol/L (136-145); TOTAL PROTEIN 4.9 gm/dL (6.4-8.2)
[2018-06-29 06:08] LABS: BASO % 0.2 % (0.0-1.0); EOS % 0.1 % (1.0-4.0); HEMATOCRIT 34.9 % (37.0-47.0); HEMOGLOBIN 10.4 g/dl (12.0-16.0); LYMPH # 1.3 10*3/uL (1.3-4.4); LYMPH % 12.1 % (27.0-41.0); MEAN CELL VOLUME 81.9 fl (81.0-99.0); MEAN CORPUSCULAR HGB 24.4 pg (27.0-31.0); MEAN CORPUSCULAR HGB CONC 29.8 g/dl (33.0-37.0); MEAN PLATELET VOLUME 9.2 fl (9.6-12.3); MONO # 0.7 10*3/uL (0.1-1.0); MONO % 5.9 % (3.0-9.0); NEUT # 8.8 10*3/uL (2.3-7.9); NEUT % 80.1 % (47.0-73.0); PLATELET COUNT AUTOMATED 246 10*3/uL (130-400); RED BLOOD COUNT 4.26 10*6/uL (4.10-5.10); RED CELL DISTRI WIDTH 16.2 % (0-14.5)
[2018-06-29 12:00] LABS: ABG BASE EXCESS 2.8 mmol/L (-2.0-2.0); ABG HCO3 28.3 mmol/l (22-26); ABG O2 SATURATION 91.6 % (95-97); ARTERIAL BLOOD GAS PCO2 49.6 mmHg (35-45); ARTERIAL BLOOD GAS PH 7.372 (7.35-7.45); ARTERIAL BLOOD GAS PO2 58.8 mmHg (80-90)
[2018-06-29 13:52] LABS: ABG BASE EXCESS 3.2 mmol/L (-2.0-2.0); ABG HCO3 28.1 mmol/l (22-26); ABG O2 SATURATION 96.7 % (95-97); ARTERIAL BLOOD GAS PCO2 46.2 mmHg (35-45); ARTERIAL BLOOD GAS PH 7.399 (7.35-7.45); ARTERIAL BLOOD GAS PO2 80.7 mmHg (80-90)
[2018-06-30] VITALS (12 sets, daily range): BP systolic 74–128; BP diastolic 50–74
[2018-06-30 06:10] LABS: ALBUMIN 1.9 gm/dl (3.1-4.5); ALKALINE PHOSPHATASE 54 U/L (45-117); BUN 12 mg/dl (7-24); CHLORIDE 104 mmol/L (98-107); CREATININE 0.28 mg/dL (0.55-1.02); PHOSPHOROUS 1.9 mg/dL (2.5-4.9); POTASSIUM 2.9 mmol/L (3.5-5.1); SGOT/AST 12 IU/L (3-35); SGPT/ALT 12 U/L (12-78); SODIUM 142 mmol/L (136-145); TOTAL PROTEIN 4.5 gm/dL (6.4-8.2)
[2018-06-30 06:50] LABS: BASO % 0.1 % (0.0-1.0); EOS % 0.1 % (1.0-4.0); HEMATOCRIT 31.8 % (37.0-47.0); HEMOGLOBIN 9.6 g/dl (12.0-16.0); LYMPH # 1.1 10*3/uL (1.3-4.4); LYMPH % 10.5 % (27.0-41.0); MEAN CORPUSCULAR HGB 24.7 pg (27.0-31.0); MEAN CORPUSCULAR HGB CONC 30.2 g/dl (33.0-37.0); MEAN PLATELET VOLUME 9.4 fl (9.6-12.3); MONO # 0.7 10*3/uL (0.1-1.0); MONO % 6.3 % (3.0-9.0); NEUT # 8.9 10*3/uL (2.3-7.9); NEUT % 81.8 % (47.0-73.0); PLATELET COUNT AUTOMATED 209 10*3/uL (130-400); RED BLOOD COUNT 3.88 10*6/uL (4.10-5.10); RED CELL DISTRI WIDTH 16.2 % (0-14.5); WHITE BLOOD COUNT 10.9 10*3/uL (4.8-10.8)
[2018-06-30 07:55] LABS: ABG BASE EXCESS 4.6 mmol/L (-2.0-2.0); ABG HCO3 29.7 mmol/l (22-26); ABG O2 SATURATION 97.6 % (95-97); ARTERIAL BLOOD GAS PCO2 48.8 mmHg (35-45); ARTERIAL BLOOD GAS PH 7.399 (7.35-7.45); ARTERIAL BLOOD GAS PO2 89.3 mmHg (80-90)
[2018-06-30 11:24] LABS: ABG BASE EXCESS 4.5 mmol/L (-2.0-2.0); ABG HCO3 29.2 mmol/l (22-26); ABG O2 SATURATION 98.5 % (95-97); ARTERIAL BLOOD GAS PCO2 46.4 mmHg (35-45); ARTERIAL BLOOD GAS PH 7.414 (7.35-7.45)
[2018-06-30 16:11] LABS: ACID FAST SPEC PROCESSING Concentration (.)
[2018-07-01] VITALS (12 sets, daily range): BP systolic 108–133; BP diastolic 64–83
[2018-07-01 06:24] LABS: BASO % 0.1 % (0.0-1.0); EOS % 0.1 % (1.0-4.0); HEMATOCRIT 31.1 % (37.0-47.0); HEMOGLOBIN 9.3 g/dl (12.0-16.0); LYMPH % 12.1 % (27.0-41.0); MEAN CELL VOLUME 82.3 fl (81.0-99.0); MEAN CORPUSCULAR HGB 24.6 pg (27.0-31.0); MEAN CORPUSCULAR HGB CONC 29.9 g/dl (33.0-37.0); MEAN PLATELET VOLUME 9.6 fl (9.6-12.3); MONO # 0.5 10*3/uL (0.1-1.0); MONO % 5.8 % (3.0-9.0); NEUT # 6.3 10*3/uL (2.3-7.9); NEUT % 79.9 % (47.0-73.0); PLATELET COUNT AUTOMATED 181 10*3/uL (130-400); RED BLOOD COUNT 3.78 10*6/uL (4.10-5.10); RED CELL DISTRI WIDTH 16.5 % (0-14.5); WHITE BLOOD COUNT 7.9 10*3/uL (4.8-10.8)
[2018-07-01 06:30] LABS: ALBUMIN 1.9 gm/dl (3.1-4.5); BUN 11 mg/dl (7-24); CHLORIDE 109 mmol/L (98-107); CREATININE 0.27 mg/dL (0.55-1.02); POTASSIUM 2.8 mmol/L (3.5-5.1); SGOT/AST 11 IU/L (3-35); SGPT/ALT 12 U/L (12-78); SODIUM 145 mmol/L (136-145)
[2018-07-01 06:32] LABS: ALKALINE PHOSPHATASE 56 U/L (45-117); PHOSPHOROUS 1.5 mg/dL (2.5-4.9); TOTAL PROTEIN 4.4 gm/dL (6.4-8.2)
[2018-07-01 07:18] LABS: ABG BASE EXCESS 4.2 mmol/L (-2.0-2.0); ABG HCO3 28.6 mmol/l (22-26); ABG O2 SATURATION 96.9 % (95-97); ARTERIAL BLOOD GAS PH 7.435 (7.35-7.45); ARTERIAL BLOOD GAS PO2 79.4 mmHg (80-90)
[2018-07-01 12:04] LABS: BODY FLUID WBC 282 /uL
[2018-07-01 12:58] LABS: BF LYMPHOCYTES 39 %; BF MACROPHAGES 20 %; BF MONOCYTES 2 %; BF NEUTROPHILS 39 %
[2018-07-01 17:18] LABS: BUN 9 mg/dl (7-24); CHLORIDE 110 mmol/L (98-107); CREATININE 0.24 mg/dL (0.55-1.02); SODIUM 145 mmol/L (136-145)
[2018-07-01 17:19] LABS: LDH 188 U/L (84-246)
[2018-07-01 17:27] LABS: POTASSIUM 4.1 mmol/L (3.5-5.1)
[2018-07-02] VITALS (9 sets, daily range): BP systolic 108–156; BP diastolic 63–92
[2018-07-02 05:38] LABS: ALBUMIN 1.9 gm/dl (3.1-4.5); ALKALINE PHOSPHATASE 49 U/L (45-117); BUN 12 mg/dl (7-24); CHLORIDE 108 mmol/L (98-107); CREATININE 0.17 mg/dL (0.55-1.02); PHOSPHOROUS 1.8 mg/dL (2.5-4.9); POTASSIUM 3.7 mmol/L (3.5-5.1); SGOT/AST 10 IU/L (3-35); SGPT/ALT 12 U/L (12-78); SODIUM 145 mmol/L (136-145); TOTAL PROTEIN 4.7 gm/dL (6.4-8.2)
[2018-07-02 06:17] LABS: BASO % 0.1 % (0.0-1.0); EOS % 0.1 % (1.0-4.0); HEMOGLOBIN 9.7 g/dl (12.0-16.0); LYMPH % 12.1 % (27.0-41.0); MEAN CELL VOLUME 81.4 fl (81.0-99.0); MEAN CORPUSCULAR HGB 24.7 pg (27.0-31.0); MEAN CORPUSCULAR HGB CONC 30.3 g/dl (33.0-37.0); MEAN PLATELET VOLUME 9.4 fl (9.6-12.3); MONO # 0.4 10*3/uL (0.1-1.0); MONO % 4.7 % (3.0-9.0); NEUT # 6.7 10*3/uL (2.3-7.9); NEUT % 80.1 % (47.0-73.0); PLATELET COUNT AUTOMATED 182 10*3/uL (130-400); RED BLOOD COUNT 3.93 10*6/uL (4.10-5.10); RED CELL DISTRI WIDTH 16.7 % (0-14.5); WHITE BLOOD COUNT 8.4 10*3/uL (4.8-10.8)
[2018-07-02 07:18] LABS: ABG BASE EXCESS 4.9 mmol/L (-2.0-2.0); ABG HCO3 29.8 mmol/l (22-26); ABG O2 SATURATION 97.4 % (95-97); ARTERIAL BLOOD GAS PCO2 48.3 mmHg (35-45); ARTERIAL BLOOD GAS PH 7.407 (7.35-7.45); ARTERIAL BLOOD GAS PO2 88.8 mmHg (80-90)
[2018-07-02 11:00] LABS: ABG BASE EXCESS 6.9 mmol/L (-2.0-2.0); ABG HCO3 31.9 mmol/l (22-26); ABG O2 SATURATION 96.2 % (95-97); ARTERIAL BLOOD GAS PCO2 49.5 mmHg (35-45); ARTERIAL BLOOD GAS PH 7.426 (7.35-7.45); ARTERIAL BLOOD GAS PO2 79.7 mmHg (80-90)
[2018-07-03] VITALS: BP 128/85; BP 137/80
[2018-07-03 04:00] VITALS: BP 146/86
[2018-07-03 08:00] VITALS: BP 160/98
[2018-07-03 08:43] LABS: MEAN CORPUSCULAR HGB 24.2 pg (27.0-31.0); MEAN CORPUSCULAR HGB CONC 29.6 g/dl (33.0-37.0); PLATELET COUNT AUTOMATED 235 10*3/uL (130-400); RED BLOOD COUNT 5.32 10*6/uL (4.10-5.10); RED CELL DISTRI WIDTH 16.7 % (0-14.5); WHITE BLOOD COUNT 17.6 10*3/uL (4.8-10.8)
[2018-07-03 08:48] LABS: HEMATOCRIT 43.6 % (37.0-47.0); HEMOGLOBIN 12.9 g/dl (12.0-16.0)
[2018-07-03 08:51] LABS: ALBUMIN 2.4 gm/dl (3.1-4.5); ALKALINE PHOSPHATASE 73 U/L (45-117); BUN 6 mg/dl (7-24); CHLORIDE 100 mmol/L (98-107); CREATININE 0.24 mg/dL (0.55-1.02); PHOSPHOROUS 1.6 mg/dL (2.5-4.9); POTASSIUM 3.7 mmol/L (3.5-5.1); SGOT/AST 21 IU/L (3-35); SGPT/ALT 19 U/L (12-78); SODIUM 141 mmol/L (136-145); TOTAL PROTEIN 5.9 gm/dL (6.4-8.2)
[2018-07-03 08:54] LABS: ATYPICAL LYMPHS 1 % (0-0); PLATELET SUFFICIENCY NORMAL (NORMAL); TOTAL CELLS COUNTED 100 #CELLS
[2018-07-03 12:00] VITALS: BP 111/76
[2018-07-03 16:00] VITALS: BP 131/85
[2018-07-03 20:00] VITALS: BP 144/78
[2018-07-04] VITALS (7 sets, daily range): BP systolic 87–119; BP diastolic 56–73
[2018-07-04 06:36] LABS: HEMOGLOBIN 12.6 g/dl (12.0-16.0); MEAN CELL VOLUME 81.6 fl (81.0-99.0); MEAN CORPUSCULAR HGB 24.5 pg (27.0-31.0); MEAN PLATELET VOLUME 8.8 fl (9.6-12.3); PLATELET COUNT AUTOMATED 221 10*3/uL (130-400); RED BLOOD COUNT 5.15 10*6/uL (4.10-5.10); RED CELL DISTRI WIDTH 16.4 % (0-14.5); WHITE BLOOD COUNT 15.3 10*3/uL (4.8-10.8)
[2018-07-04 07:27] LABS: ATYPICAL LYMPHS 3 % (0-0); PLATELET SUFFICIENCY NORMAL (NORMAL); TOTAL CELLS COUNTED 100 #CELLS
[2018-07-04 07:28] LABS: TOXIC GRANULATION SLIGHT; VACUOLATION OF NEUTROPHILS SLIGHT
[2018-07-04 07:29] LABS: STOMATOCYTE FEW
[2018-07-04 07:59] LABS: ALBUMIN 2.2 gm/dl (3.1-4.5); ALKALINE PHOSPHATASE 73 U/L (45-117); CHLORIDE 102 mmol/L (98-107); CREATININE 0.23 mg/dL (0.55-1.02); PHOSPHOROUS 2.5 mg/dL (2.5-4.9); POTASSIUM 3.4 mmol/L (3.5-5.1); SGOT/AST 16 IU/L (3-35); SGPT/ALT 17 U/L (12-78); SODIUM 142 mmol/L (136-145); TOTAL PROTEIN 5.3 gm/dL (6.4-8.2)
[2018-07-04 08:06] LABS: BUN 15 mg/dl (7-24)
[2018-07-05] VITALS: BP 127/73
[2018-07-05 04:00] VITALS: BP 150/99
[2018-07-05 06:17] LABS: HEMATOCRIT 37.9 % (37.0-47.0); HEMOGLOBIN 11.5 g/dl (12.0-16.0); MEAN CELL VOLUME 81.3 fl (81.0-99.0); MEAN CORPUSCULAR HGB 24.7 pg (27.0-31.0); MEAN CORPUSCULAR HGB CONC 30.3 g/dl (33.0-37.0); MEAN PLATELET VOLUME 9.4 fl (9.6-12.3); PLATELET COUNT AUTOMATED 214 10*3/uL (130-400); RED BLOOD COUNT 4.66 10*6/uL (4.10-5.10); RED CELL DISTRI WIDTH 16.3 % (0-14.5); WHITE BLOOD COUNT 11.1 10*3/uL (4.8-10.8)
[2018-07-05 06:42] LABS: BUN 17 mg/dl (7-24); CHLORIDE 99 mmol/L (98-107); CREATININE 0.28 mg/dL (0.55-1.02); POTASSIUM 3.4 mmol/L (3.5-5.1); SODIUM 143 mmol/L (136-145)
[2018-07-05 06:56] LABS: ATYPICAL LYMPHS 5 % (0-0); PLATELET SUFFICIENCY NORMAL (NORMAL); TOTAL CELLS COUNTED 100 #CELLS
[2018-07-05 06:58] LABS: TOXIC GRANULATION SLIGHT; VACUOLATION OF NEUTROPHILS SLIGHT
[2018-07-05 08:00] VITALS: BP 190/94
[2018-07-05 12:00] VITALS: BP 107/69
[2018-07-05] MEDS ORDERED: SOLU-MEDRO40 MG/1 ML IV (13:30)
[2018-07-05 15:44] VITALS: BP 118/76
[2018-08-10 15:05] LABS: ACID FAST CULTURE Negative (.)
== END 2018-07-05 17:29 | disposition short-term general hospital (02) | DRG 871 ==
LOC: ED 12:02 → ICCU 12:59 → EDHOLD 12:59 → ICCU 13:10
PROVIDERS: Internal Medicine; Internal Medicine Critical Care Medicine; Nurse Practitioner Family; Student in an Organized Health Care Education/Training Program
PROC: 5A09357 Assistance with Respiratory Ventilation, Less than 24 Consecutive Hours, Continuous Positive Airway Pressure (ICD-10-PCS; 2018-06-27)
PROC: 5A09357 Assistance with Respiratory Ventilation, Less than 24 Consecutive Hours, Continuous Positive Airway Pressure (ICD-10-PCS; 2018-06-28)
PROC: 5A1945Z Respiratory Ventilation, 24-96 Consecutive Hours (ICD-10-PCS; principal; 2018-06-29)
PROC: 0BH17EZ Insertion of Endotracheal Airway into Trachea, Via Natural or Artificial Opening (ICD-10-PCS; 2018-06-29)
PROC: 0B918ZZ Drainage of Trachea, Via Natural or Artificial Opening Endoscopic (ICD-10-PCS; 2018-06-29)
PROC: 5A09357 Assistance with Respiratory Ventilation, Less than 24 Consecutive Hours, Continuous Positive Airway Pressure (ICD-10-PCS; 2018-06-29)
PROC: 0W9930Z Drainage of Right Pleural Cavity with Drainage Device, Percutaneous Approach (ICD-10-PCS; 2018-07-01)
PROC: 5A09357 Assistance with Respiratory Ventilation, Less than 24 Consecutive Hours, Continuous Positive Airway Pressure (ICD-10-PCS; 2018-07-02)
PROC: 5A09357 Assistance with Respiratory Ventilation, Less than 24 Consecutive Hours, Continuous Positive Airway Pressure (ICD-10-PCS; 2018-07-03)
PROC: 5A09357 Assistance with Respiratory Ventilation, Less than 24 Consecutive Hours, Continuous Positive Airway Pressure (ICD-10-PCS; 2018-07-04)
PROC: 5A09357 Assistance with Respiratory Ventilation, Less than 24 Consecutive Hours, Continuous Positive Airway Pressure (ICD-10-PCS; 2018-07-05)
DX: A41.9 Sepsis, unspecified organism (principal); J15.212 Pneumonia due to Methicillin resistant Staphylococcus aureus; E43 Unspecified severe protein-calorie malnutrition; J96.21 Acute and chronic respiratory failure with hypoxia; J85.0 Gangrene and necrosis of lung; I24.8 Other forms of acute ischemic heart disease; J90 Pleural effusion, not elsewhere classified; Z68.1 Body mass index [BMI] 19.9 or less, adult; R65.20 Severe sepsis without septic shock; Z99.81 Dependence on supplemental oxygen; D72.9 Disorder of white blood cells, unspecified; E55.9 Vitamin D deficiency, unspecified; D50.9 Iron deficiency anemia, unspecified; K21.9 Gastro-esophageal reflux disease without esophagitis; F32.9 Major depressive disorder, single episode, unspecified; G47.00 Insomnia, unspecified; D63.8 Anemia in other chronic diseases classified elsewhere; F41.9 Anxiety disorder, unspecified; J43.2 Centrilobular emphysema; F03.90 Unspecified dementia, unspecified severity, without behavioral disturbance, psychotic disturbance, mood disturbance, and anxiety; D72.810 Lymphocytopenia; E87.6 Hypokalemia; R73.9 Hyperglycemia, unspecified; Z72.0 Tobacco use; Z71.6 Tobacco abuse counseling; Z81.1 Family history of alcohol abuse and dependence; Z91.048 Other nonmedicinal substance allergy status; Z81.2 Family history of tobacco abuse and dependence; Z82.49 Family history of ischemic heart disease and other diseases of the circulatory system; Z83.3 Family history of diabetes mellitus; Z85.118 Personal history of other malignant neoplasm of bronchus and lung; Z79.899 Other long term (current) drug therapy; Z79.52 Long term (current) use of systemic steroids; Z87.01 Personal history of pneumonia (recurrent)